=== PATIENT | female | born 1995 | race African-American/Black ===

== ENCOUNTER 2021-12-11 11:39 | Emergency (ER) | payer MEDICAID, SELFPAY ==
--- NOTE | ~2021-12-11 | US_ITS ---
EXAMINATION: US OBSTETRICAL ULTRASOUND CLINICAL INFORMATION: Rule out a catheter presence the. Left pelvic pain. Beta hCG 13,841 COMPARISON: None. LMP: October 30, 2021. Gestational age by maternal dates is 6 weeks 0 days. Estimated date of delivery by maternal dates is August 06, 2022. TECHNIQUE: Ultrasound of the maternal pelvis is performed using transabdominal and transvaginal transducers. Transvaginal imaging is performed due to inadequate visualization transabdominally. M-mode Doppler is also performed. FINDINGS: There is a single intrauterine gestational sac no yolk sac or pole was identified. There is no significant subchorionic hemorrhage or hematoma. The gestational sac measures 0.79 cm corresponding to a ultrasound gestational age of 5 weeks 3 days JAZMINE (estimated date of delivery): August 10, 2022 +/- 4 days. MATERNAL ADNEXA: The right maternal ovary measures 2.5 x 2.5 x 1.5 cm. No right adnexal mass or hypervascular ring of fire seen. The left maternal ovary measures 3.6 x 3.6 x 2.3 cm. No right adnexal mass or hypervascular ring of fire. There is a small amount of fluid within the cul-de-sac. US/US OB pelvic and transvaginal IMPRESSION: 1. Single intrauterine sac with ultrasound gestational age of 5 weeks 3 days +/- 4 days. 2. Estimated date of delivery is August 10, 2022 +/- 4 days. 3. No suspicious adnexal mass identified. Small amount of free fluid.
[2021-12-11 12:20] VITALS: BP 119/74; PULSE 76; RESP 16; TEMP 36.1; O2SAT 100; BMI 39.0
[2021-12-11 13:09] LABS: MANUAL DIFF FLAG NO
[2021-12-11 13:12] LABS: Basophils Percent Auto 0.2 % (0-2); Eosinophils Percent Auto 0.3 % (0-4); Hematocrit 37.2 % (37.0-47.0); Hemoglobin 11.7 g/dl (12.0-16.0); Imm Gran Abs Auto 0.01 X10*3/uL (0.00-0.03); Imm Gran Pct Auto 0.2 % (0.0-0.4); Lymphocytes Absolute Auto 1.9 X10*3/uL (1.2-4.9); Lymphocytes Percent Auto 33.6 % (20-40); Mean Corpuscular HGB Conc 31.5 g/dl (31.0-35.0); Mean Corpuscular Hemoglobin 23.4 pg (27.0-33.0); Mean Corpuscular Volume 74.4 fL (80.0-98.0); Mean Platelet Volume 9.8 fL (9.4-12.3); Monocytes Absolute Auto 0.3 X10*3/uL (0.1-1.2); Neutrophils Absolute Auto 3.5 x10*3/uL (2.0-8.3); Neutrophils Percent Auto 60.7 % (45-73); Platelet Count 346 X10*3/uL (160-400); Red Cell Distribution Width 14.1 % (11.0-16.0); White Blood Count 5.8 X10*3/uL (4.8-10.8)
[2021-12-11 13:30] LABS: Anion Gap 12 (12-20); Blood Urea Nitrogen 6 mg/dL (9-16); Calcium 9.6 mg/dL (8.4-10.2); Carbon Dioxide 24 mmol/L (22-29); Chloride 106 mmol/L (96-108); Creatinine Clr Calc Pharmacy 119.9; Estimated Glomerular Filt Rate > 60; Glucose Random 90 mg/dL (60-115); Potassium 4.3 mmol/L (3.3-5.1); Sodium 138 mmol/L (135-145)
[2021-12-11 13:37] LABS: HCG Quantitative 13841 mIU/mL
[2021-12-11 20:35] VITALS: BP 106/67; PULSE 72; RESP 18; TEMP 36.9; O2SAT 100
[2021-12-11 21:50] VITALS: BP 108/63; PULSE 74; RESP 18; O2SAT 100
[2021-12-11 22:02] LABS: Appearance Urine Cloudy; Color Urine Yellow; Glucose Urine UA Negative (Negative); Leukocyte Esterase Urine Negative (Negative); Nitrite Urine Negative (Negative); Urine Blood Negative (Negative); Urine Ketones Negative (Negative); Urine Protein Negative (Neg-Trace)
--- NOTE | 2021-12-11 22:02 | ED.FEMALEGU ---
HPI - Female Genitourinary General Chief complaint: Abdominal Pain Stated complaint: sent for HHC, ectopic ? Time Seen by Provider: 12/11/21 21:52 Source: patient Mode of arrival: ambulatory Limitations: no limitations History of Present Illness HPI Narrative: patient about 5 weeks complaining of lower abdominal pain was sent by OBG for US to rule out ectopic no vaginal bleeding no nausea no vomiting Related Data Allergies Allergy/AdvReac Type Severity Reaction Status Date / Time No Known Allergies Allergy Verified 12/11/21 12:24 Review of Systems Review of Systems: Yes all other systems are reviewed and are negative [facility], [facility] Social History Social History Advance Directives: No Advance Directives Information Provided: No Physical Exam Vital Signs: Vital Signs: Last Vital Signs Temp 98.4 F 12/11/21 20:35 Pulse 74 12/11/21 21:50 Resp 18 12/11/21 21:50 BP 108/63 12/11/21 21:50 Pulse Ox 100 12/11/21 21:50 O2 Del Method 12/11/21 21:50 BMI result Body Mass Index 39.0 Appearance: Alert. Oriented X3. No acute distress. ENT: Pharynx normal. Oral Mucosa moist Neck: Normal inspection. Neck supple. CVS: Normal heart rate and rhythm. Pulses normal. Respiratory: No respiratory distress. Equal air entry bilateral, Abdomen: Soft mild suprapubic discomfort, Bowel sounds are present, no mass palpable, no CVA tenderness Skin: Skin warm and dry. Normal skin color. Normal skin turgor. Extremities: No lower extremity edema. No calf tenderness Neuro: Oriented X 3. MDM - Female Genitourinary MDM Narrative Medical decision making narrative: patient have stable lab ultrasound showed IUP 5 weeks 3 days patient without any significant discomfort advised to follow up Ob Lab Data Attestation: I reviewed the patient's lab results. Result diagrams: 12/11/21 13:05 12/11/21 13:05 Labs: Lab Results 12/11/21 12/11/21 12/11/21 Range/Units 13:05 13:05 21:54 WBC 5.8 (4.8-10.8) X10*3/uL RBC 5.00 (4.20-5.50) X10*6/uL Hgb 11.7 L (12.0-16.0) g/dl Hct 37.2 (37.0-47.0) % MCV 74.4 L (80.0-98.0) fL MCH 23.4 L (27.0-33.0) pg MCHC 31.5 (31.0-35.0) g/dl RDW 14.1 (11.0-16.0) % Plt Count 346 (160-400) X10*3/uL MPV 9.8 (9.4-12.3) fL Immature Gran % (Auto) 0.2 (0.0-0.4) % Neut % (Auto) 60.7 (45-73) % Lymph % (Auto) 33.6 (20-40) % [place] % (Auto) 5.0 (2-11) % Eos % (Auto) 0.3 (0-4) % Baso % (Auto) 0.2 (0-2) % Lymph # (Auto) 1.9 (1.2-4.9) X10*3/uL [place] # (Auto) 0.3 (0.1-1.2) X10*3/uL Eos # (Auto) 0.0 (0.0-0.4) X10*3/uL Baso # (Auto) 0.0 (0.0-0.2) X10*3/uL Abs Immat Gran (auto) 0.01 (0.00-0.03) X10*3/uL Absolute Neuts (auto) 3.5 (2.0-8.3) x10*3/uL Absolute Nucleated RBC 0.000 (0.0-0.012) X10*3/uL Nucleated RBC % (auto) 0.0 (0.0-0.2) /100WBC Sodium 138 (135-145) mmol/L Potassium 4.3 (3.3-5.1) mmol/L Chloride 106 (96-108) mmol/L Carbon Dioxide 24 (22-29) mmol/L Anion Gap 12 (12-20) BUN 6 L (9-16) mg/dL Creatinine 0.72 (0.5-1.4) mg/dL Estim Creat Clear Calc 119.9 Estimated GFR > 60 Random Glucose 90 (60-115) mg/dL Calcium 9.6 (8.4-10.2) mg/dL Beta HCG, Quant 40865 mIU/mL Urine Color Yellow Urine Appearance Cloudy Urine pH 7.0 (5.0-9.0) Ur Specific [place] 1.010 (1.005-1.025) Urine Protein Negative (Neg-Trace) mg/dL Urine Glucose (UA) Negative (Negative) mg/dL Urine Ketones Negative (Negative) mg/dL Urine Blood Negative (Negative) Urine Nitrite Negative (Negative) Ur Leukocyte Esterase Negative (Negative) Discharge Plan Discharge Clinical Impression: at early stage Patient Disposition: Home, Self-Care Instructions: (ED) Additional Instructions: you have normal 5 weeks 3 days expected date of delivery is 08/10/2022 follow-up with your OB G if any concern report to ER if vaginal bleeding or increased abdominal pain watts g?t n?mal b?l? 5 wik 3 de di de we d?n olga se d?n go s?n am na 08/10/2022 f?l?p wit watts OB G if ?ni k?nsyus?n rip?t to ER if bl?d de k?m?t na di vagina ? di b?l? de pen b?ku Interventions: ED Discharge Assessment Last Done: 12/11/21 22:49 Discharge Date/Time: 12/11/21 22:50 Print Language: Divehi
== END 2021-12-11 22:50 | disposition home or self-care (01) ==
LOC: HO.ED 22:42
PROVIDERS: Emergency Provider Internal Medicine
DX: R10.30 Lower abdominal pain, unspecified (principal); R10.2 Pelvic and perineal pain; Z79.899 Other long term (current) drug therapy
CPT/HCPCS: 36415; 76801; 76817; 80048; 81003; 84702; 85025; 99283; 99284

== ENCOUNTER 2021-12-29 13:43 | Emergency (ER) | payer MEDICAID, SELFPAY ==
--- NOTE | ~2021-12-29 | US_ITS ---
EXAMINATION: US OBSTETRICAL ULTRASOUND US PELVIC OVARIAN DOPPLER CLINICAL INFORMATION: Left-sided flank and pelvic pain. Positive beta hCG. COMPARISON: Pelvic ultrasound dated 12/11/2021. LMP: Unknown. Gestational age by maternal dates is unknown. Estimated date of delivery by maternal dates is unknown. TECHNIQUE: Ultrasound images of the pelvis were obtained. FINDINGS: There is a single intrauterine gestational sac with visible yolk sac, embryo/fetus, and cardiac activity. There is no significant subchorionic hemorrhage or hematoma. HR: 146 beats per minute. CRL (crown rump length): 1.04 cm (7 weeks 1 day +/- 4 days). JAZMINE (estimated date of delivery): 08/16/2022 +/- 4 days. MATERNAL ADNEXA: The right maternal ovary measures 2.2 x 1.3 x 2.6 cm. No right ovarian lesion. Normal Doppler detectable vascular flow. The left maternal ovary measures 3.5 x 2.4 x 3.9 cm. No left ovarian lesion. Normal Doppler detectable vascular flow. There is no significant maternal adnexal mass. No maternal pelvic ascites. US/US pelvic ovarian doppler IMPRESSION: 1. Single intrauterine gestation with ultrasound gestational age of 7 weeks 1 day +/- 4 days. No subchorionic hemorrhage. 2. Estimated date of delivery is 08/16/2022 +/- 4 days. 3. No maternal adnexal mass or pelvic ascites.
--- NOTE | ~2021-12-29 | US_ITS ---
EXAMINATION: US OBSTETRICAL ULTRASOUND US PELVIC OVARIAN DOPPLER CLINICAL INFORMATION: Left-sided flank and pelvic pain. Positive beta hCG. COMPARISON: Pelvic ultrasound dated 12/11/2021. LMP: Unknown. Gestational age by maternal dates is unknown. Estimated date of delivery by maternal dates is unknown. TECHNIQUE: Ultrasound images of the pelvis were obtained. FINDINGS: There is a single intrauterine gestational sac with visible yolk sac, embryo/fetus, and cardiac activity. There is no significant subchorionic hemorrhage or hematoma. HR: 146 beats per minute. CRL (crown rump length): 1.04 cm (7 weeks 1 day +/- 4 days). JAZMINE (estimated date of delivery): 08/16/2022 +/- 4 days. MATERNAL ADNEXA: The right maternal ovary measures 2.2 x 1.3 x 2.6 cm. No right ovarian lesion. Normal Doppler detectable vascular flow. The left maternal ovary measures 3.5 x 2.4 x 3.9 cm. No left ovarian lesion. Normal Doppler detectable vascular flow. There is no significant maternal adnexal mass. No maternal pelvic ascites. US/US OB pelvic and transvaginal IMPRESSION: 1. Single intrauterine gestation with ultrasound gestational age of 7 weeks 1 day +/- 4 days. No subchorionic hemorrhage. 2. Estimated date of delivery is 08/16/2022 +/- 4 days. 3. No maternal adnexal mass or pelvic ascites.
[2021-12-29 14:13] VITALS: BP 108/64; PULSE 84; RESP 16; TEMP 36.2; O2SAT 100; BMI 27.4
--- NOTE | 2021-12-29 16:29 | ED.BACK ---
HPI - Back Pain/Injury General Chief Complaint: Back Pain/Injury Stated Complaint: Lower back pain Time Seen by Provider: 12/29/21 16:29 Source: patient Mode of arrival: ambulatory Limitations: no limitations History of Present Illness HPI Narrative: This is a 26-year-old female no significant medical history, currently around 6-7 weeks presenting to the emergency department complaints of severe left-sided flank pain with radiation to the front left abdomen, patient tells me this has been going on for few days progressively worsening. She was recently told she was . She tells me the pain is intermittent in nature, worse with movement better at rest. She reports that it goes mostly from her left flank into her left lower quadrant/ hip region. Patient reports she is very uncomfortable. Denies any injury or trauma. Denies nausea, vomiting, headache, vision changes, chest pain, shortness of breath, vaginal bleeding, vaginal discharge MD elicited complaint: other (Flank pain ) Related Data Previous Rx's Medication Instructions Recorded cephalexin 500 mg tablet 500 mg PO TID 14 days #42 tabs 12/29/21 prenat.vits,jaime,ypx-uhln-iaxcb 1 tab PO DAILY #30 tabs 12/29/21 Allergies Allergy/AdvReac Type Severity Reaction Status Date / Time No Known Allergies Allergy Verified 12/11/21 12:24 Review of Systems Review of Systems: Constitutional : No Weight loss, No Fever, No Chills, ENT/Mouth : No Hearing loss, No Ear Pain, No Nasal Congestion, No Sinus Pain, No Hoarseness, No sore throat, No Rhinorrhea, No Swallowing Difficulty Cardiovascular : No Chest Pain, No SOB Respiratory : No Cough, No Dyspnea Gastrointestinal : No Nausea, No Vomiting, No Diarrhea, No abdominal Pain, No Hematochezia, No Melena Genitourinary : No Dysuria, No Urinary Frequency, No Hematuria, No Urinary Incontinence, Musculoskeletal : positive back pain, positive flank pain Skin : No Skin Lesions, No rash Neuro : No Weakness, No Numbness, No Paresthesias, no loss of bowel or bladder incontinence, no saddle anesthesia Yes all other systems are reviewed and are negative [facility] Past Medical History Attestation statement: The following information was validated with the patient. Source: old records reviewed and nursing notes reviewed Social History Social History Advance Directives: No Advance Directives Information Provided: No Physical Exam Vital Signs: Vital Signs: Last Vital Signs Temp 97.2 F 12/29/21 14:13 Pulse 84 12/29/21 14:13 Resp 16 12/29/21 14:13 BP 108/64 12/29/21 14:13 Pulse Ox 100 12/29/21 14:13 O2 Del Method 12/29/21 14:13 BMI result Body Mass Index 27.4 vss Appearance: Alert.? Oriented X3.? No acute distress.? Head: Normocephalic, atraumatic, no step-offs or deformities Eyes: Pupils equal, round and reactive to light.? CVS: Normal heart rate and rhythm.? Pulses normal.? Respiratory: No respiratory distress.? Breath sounds normal.? Abdomen: Soft and nontender.? Skin: Skin warm and dry.? Normal skin color.? Normal skin turgor.? Extremities: No lower extremity edema.? No calf ttp. 5/5 strength to bilateral upper and lower extremities 2+ patellar reflexes equal bilateral Back: No midline tenderness, + left lumbar paraspinous tenderness, no C-spine tenderness, full range of motion, no CVA tenderness bilaterally Neuro: Oriented X 3.? No motor deficit.? No sensory deficit. CN 2-12 intact . Patient ambulating with steady gait with normal coordination. No saddle paresthesias. Course Reevaluation(s) Reevaluation #1: Patient's CBC with a slight microcytic anemia likely secondary to . Patient denies any vaginal bleeding or abdominal trauma. Chemistry with no acute findings requiring intervention. Patient's beta hCG 154,694. COVID negative. Ultrasound showing a single intrauterine gestation with ultrasound gestational age of 7 weeks 1 day +/-4 days, no subchorionic hemorrhage, estimated date of delivery 08/16/2022. No maternal adnexal mass or pelvic ascites. Urine pending. Upon re-evaluation no tenderness to palpation of abdomen, patient appears much more comfortable tells me she is feeling slightly better. Tolerating p.o.. Time: 19:38 Reevaluation #2: Patient's urine suspicious for infection there are white blood cells as well as 3+ bacteria will treat her with Keflex 500 mg p.o. t.i.d. times 14 days to cover for UTI and potential pyelonephritis. This time patient will be discharged home gave her follow-up with OBGYN will also send vitamins to the pharmacy. This time I feel comfortable discharge home with prompt PCP follow-up. Educated on worrisome signs and symptoms and when to return outlined on discharge. Comfortable discharge Time: 20:43 Medications Administered Discontinued Medications Generic Name Dose Route Start Last Admin Trade Name Dominique PRN Reason Stop Dose Admin Acetaminophen 975 mg 12/29/21 16:39 12/29/21 17:06 Acetaminophen 325 Mg Tablet PO 12/29/21 16:40 975 mg ONCE ONE Administration MDM - Back Pain/Injury MDM Narrative Medical decision making narrative: 1630 26-year-old female presenting with left-sided back pain/ flank pain radiating to left lower abdomen/ hip. No injury. No history of IV drug abuse, cancer, fevers, chills. Currently around 6-7 weeks is not followed by OBGYN. Denies trauma, vaginal bleeding, fevers, chills Upon chart review it is noted that patient was seen here on December 11 where she presented with similar complaints lower abdominal pain, she was sent in by her OBGYN to obtain an ultrasound to rule out ectopic at that time she denied vaginal bleeding nausea and vomiting. Patient was noted to have a intrauterine at 5 weeks 3 days without significant discomfort. Physical examination with pain with palpation to left paraspinous muscles, no midline tenderness. Neuro nonfocal. Cerebellar intact. Non tender abdomen. Ambulating with steady gait normal coordination. No saddle paresthesias. Normal reflexes. Likely lumbar strain. Unlikely cauda equina, epidural abscess, torsion, cord injury, appendicits, diverticulitis, kidney stones. No signs of peritonitis or acute abdomen. Will rule complications w/ . Medical Records Attestation: I reviewed the patient's medical records. Lab Data Attestation: I reviewed the patient's lab results. Result diagrams: 12/29/21 17:11 12/29/21 17:11 Labs: Lab Results 12/29/21 12/29/21 12/29/21 Range/Units 17:09 17:11 17:11 WBC 6.5 (4.8-10.8) X10*3/uL RBC 4.55 (4.20-5.50) X10*6/uL Hgb 11.0 L (12.0-16.0) g/dl Hct 33.5 L (37.0-47.0) % MCV 73.6 L (80.0-98.0) fL MCH 24.2 L (27.0-33.0) pg MCHC 32.8 (31.0-35.0) g/dl RDW 13.6 (11.0-16.0) % Plt Count 263 (160-400) X10*3/uL MPV 10.0 (9.4-12.3) fL Immature Gran % (Auto) 0.2 (0.0-0.4) % Neut % (Auto) 56.7 (45-73) % Lymph % (Auto) 35.9 (20-40) % [place] % (Auto) 6.4 (2-11) % Eos % (Auto) 0.6 (0-4) % Baso % (Auto) 0.2 (0-2) % Lymph # (Auto) 2.4 (1.2-4.9) X10*3/uL [place] # (Auto) 0.4 (0.1-1.2) X10*3/uL Eos # (Auto) 0.0 (0.0-0.4) X10*3/uL Baso # (Auto) 0.0 (0.0-0.2) X10*3/uL Abs Immat Gran (auto) 0.01 (0.00-0.03) X10*3/uL Absolute Neuts (auto) 3.7 (2.0-8.3) x10*3/uL Absolute Nucleated RBC 0.000 (0.0-0.012) X10*3/uL Nucleated RBC % (auto) 0.0 (0.0-0.2) /100WBC Sodium 135 (135-145) mmol/L Potassium 4.1 (3.3-5.1) mmol/L Chloride 105 (96-108) mmol/L Carbon Dioxide 20 L (22-29) mmol/L Anion Gap 14 (12-20) BUN 9 (9-16) mg/dL Creatinine 0.70 (0.5-1.4) mg/dL Estim Creat Clear Calc 124.4 Estimated GFR > 60 Random Glucose 85 (60-115) mg/dL Calcium 9.4 (8.4-10.2) mg/dL Magnesium 1.8 (1.6-2.6) mg/dL Total Bilirubin 0.3 (0.0-1.0) mg/dL AST 19 (5-31) U/L ALT 13 (0-31) U/L Alkaline Phosphatase 38 L (39-117) U/L Total Protein 7.0 (6.5-8.0) g/dL Albumin 4.2 (3.5-5.0) g/dL Lipase 68 (8-78) U/L Beta HCG, Quant 857077 mIU/mL Urine Color Urine Appearance Urine pH (5.0-9.0) Ur Specific [place] (1.005-1.025) Urine Protein (Neg-Trace) mg/dL Urine Glucose (UA) (Negative) mg/dL Urine Ketones (Negative) mg/dL Urine Blood (Negative) Urine Nitrite (Negative) Ur Leukocyte Esterase (Negative) Urine RBC (0-2) /HPF Urine WBC (0-5) /HPF Ur Squamous Epith Cells (0-2) /HPF Urine Bacteria (None Seen) Hyaline Casts (0-2) /LPF COVID-19 ([facility]) Negative (Negative) COVID-19 Clin Com See Note 12/29/21 Range/Units 20:04 WBC (4.8-10.8) X10*3/uL RBC (4.20-5.50) X10*6/uL Hgb (12.0-16.0) g/dl Hct (37.0-47.0) % MCV (80.0-98.0) fL MCH (27.0-33.0) pg MCHC (31.0-35.0) g/dl RDW (11.0-16.0) % Plt Count (160-400) X10*3/uL MPV (9.4-12.3) fL Immature Gran % (Auto) (0.0-0.4) % Neut % (Auto) (45-73) % Lymph % (Auto) (20-40) % [place] % (Auto) (2-11) % Eos % (Auto) (0-4) % Baso % (Auto) (0-2) % Lymph # (Auto) (1.2-4.9) X10*3/uL [place] # (Auto) (0.1-1.2) X10*3/uL Eos # (Auto) (0.0-0.4) X10*3/uL Baso # (Auto) (0.0-0.2) X10*3/uL Abs Immat Gran (auto) (0.00-0.03) X10*3/uL Absolute Neuts (auto) (2.0-8.3) x10*3/uL Absolute Nucleated RBC (0.0-0.012) X10*3/uL Nucleated RBC % (auto) (0.0-0.2) /100WBC Sodium (135-145) mmol/L Potassium (3.3-5.1) mmol/L Chloride (96-108) mmol/L Carbon Dioxide (22-29) mmol/L Anion Gap (12-20) BUN (9-16) mg/dL Creatinine (0.5-1.4) mg/dL Estim Creat Clear Calc Estimated GFR Random Glucose (60-115) mg/dL Calcium (8.4-10.2) mg/dL Magnesium (1.6-2.6) mg/dL Total Bilirubin (0.0-1.0) mg/dL AST (5-31) U/L ALT (0-31) U/L Alkaline Phosphatase (39-117) U/L Total Protein (6.5-8.0) g/dL Albumin (3.5-5.0) g/dL Lipase (8-78) U/L Beta HCG, Quant mIU/mL Urine Color Yellow Urine Appearance Clear Urine pH 6.0 (5.0-9.0) Ur Specific [place] 1.020 (1.005-1.025) Urine Protein Negative (Neg-Trace) mg/dL Urine Glucose (UA) Negative (Negative) mg/dL Urine Ketones 80 (Negative) mg/dL Urine Blood Trace H (Negative) Urine Nitrite Negative (Negative) Ur Leukocyte Esterase Trace H (Negative) Urine RBC 0-2 (0-2) /HPF Urine WBC 6-10 H (0-5) /HPF Ur Squamous Epith Cells 6-10 (0-2) /HPF Urine Bacteria 3+ (None Seen) Hyaline Casts 0-2 (0-2) /LPF COVID-19 ([facility]) (Negative) COVID-19 Clin Com Critical Care Time Critical Care Time Critical Care Time: No Discharge Plan Discharge Clinical Impression: Lumbar radiculopathy, , UTI (urinary tract infection) Patient Disposition: Home, Self-Care Instructions: Acute Low Back Pain (ED), Lumbar Radiculopathy (ED), Back Pain (ED), Urinary Tract Infection in (ED), at 7 to 10 Weeks (ED) Additional Instructions: Take your medications as prescribed. If you were prescribed antibiotics today, it is important that you take your medication to their entirety, do not skip any doses, do not finish them early. Follow-up with your primary care provider this week. Please follow-up with your OBGYN provider this week. Return with new or worsening symptoms. Return to the emergency department with new or worsening symptoms. Such as fevers, chills, chest pain, shortness of breath, nausea, vomiting, dizziness, headache, vision changes, lethargy In case of emergency call 911 [place] mayco medicamentos seg?n lo prescrito. Si le recetaron antibi?ticos mica, es importante que tome sexton medicamento en sexton totalidad, no se salte ninguna dosis, no los termine antes de tiempo. Seguimiento con sexton proveedor de atenci?n primaria esta semana. [place] un seguimiento con sexton proveedor de obstetricia y ginecolog?a esta semana. Regresa con s?ntomas nuevos o que empeoran. Regrese al departamento de emergencias con s?ntomas nuevos o que empeoran. [place] fiebre, escalofr?os, dolor de pecho, dificultad para respirar, n?useas, v?mitos, mareos, dolor de honey, cambios en la visi?n, letargo En arcelia de emergencia llama al 911 US/US pelvic ovarian doppler IMPRESSION: 1. Single intrauterine gestation with ultrasound gestational age of? 7 weeks 1 day +/- 4 days. No subchorionic hemorrhage. ? 2. Estimated date of delivery is 08/16/2022 +/- 4 days. ? 3. No maternal adnexal mass or pelvic ascites. Prescriptions: New cephalexin 500 mg tablet 500 mg PO TID 14 Days Qty: 42 0RF prenat.vits,jaime,oua-agjj-nrxtg Tablet 1 tab PO DAILY Qty: 30 2RF Referrals: Pratik Jacobson MD [Emergency Provider] - 2 days [facility] [Primary Care Provider] - Hilario Garcia MD [Physician] - 2 days Stand Alone Forms: Work/School Release
[2021-12-29] MEDS: Acetaminophen 325 MG TABLET 975 MG PO (17:06)
[2021-12-29 17:17] LABS: MANUAL DIFF FLAG NO
[2021-12-29 17:19] LABS: Basophils Percent Auto 0.2 % (0-2); Eosinophils Percent Auto 0.6 % (0-4); Hematocrit 33.5 % (37.0-47.0); Imm Gran Abs Auto 0.01 X10*3/uL (0.00-0.03); Imm Gran Pct Auto 0.2 % (0.0-0.4); Lymphocytes Absolute Auto 2.4 X10*3/uL (1.2-4.9); Lymphocytes Percent Auto 35.9 % (20-40); Mean Corpuscular HGB Conc 32.8 g/dl (31.0-35.0); Mean Corpuscular Hemoglobin 24.2 pg (27.0-33.0); Mean Corpuscular Volume 73.6 fL (80.0-98.0); Monocytes Absolute Auto 0.4 X10*3/uL (0.1-1.2); Monocytes Percent Auto 6.4 % (2-11); Neutrophils Absolute Auto 3.7 x10*3/uL (2.0-8.3); Neutrophils Percent Auto 56.7 % (45-73); Platelet Count 263 X10*3/uL (160-400); Red Blood Count 4.55 X10*6/uL (4.20-5.50); Red Cell Distribution Width 13.6 % (11.0-16.0); White Blood Count 6.5 X10*3/uL (4.8-10.8)
[2021-12-29 17:33] LABS: COVID-19 Test Negative (Negative); IDNOW Serial# 16C4AD1C
[2021-12-29 17:37] LABS: Alanine Aminotransferase 13 U/L (0-31); Albumin Level 4.2 g/dL (3.5-5.0); Alkaline Phosphatase 38 U/L (39-117); Anion Gap 14 (12-20); Aspartate Amino Transferase 19 U/L (5-31); Bilirubin Total 0.3 mg/dL (0.0-1.0); Blood Urea Nitrogen 9 mg/dL (9-16); Calcium 9.4 mg/dL (8.4-10.2); Carbon Dioxide 20 mmol/L (22-29); Chloride 105 mmol/L (96-108); Creatinine Clr Calc Pharmacy 124.4; Estimated Glomerular Filt Rate > 60; Glucose Random 85 mg/dL (60-115); Lipase 68 U/L (8-78); Magnesium 1.8 mg/dL (1.6-2.6); Potassium 4.1 mmol/L (3.3-5.1); Sodium 135 mmol/L (135-145)
[2021-12-29 20:34] LABS: Appearance Urine Clear; Color Urine Yellow; Glucose Urine UA Negative (Negative); Leukocyte Esterase Urine Trace (Negative); Nitrite Urine Negative (Negative); UMIC TRIGGER UACC YES; Urine Blood Trace (Negative); Urine Ketones 80 mg/dL (Negative); Urine Protein Negative (Neg-Trace)
[2021-12-29 20:39] LABS: Bacteria Urine 3+ (None Seen); Hyaline Casts Urine 0-2 /LPF (0-2); RBC Urine 0-2 /HPF (0-2); UACC Culture Trigger YES
== END 2021-12-29 22:00 | disposition home or self-care (01) ==
PROVIDERS: Physician Assistant; Emergency Provider Emergency Medicine
DX: O23.41 Unspecified infection of urinary tract in pregnancy, first trimester (principal); N39.0 Urinary tract infection, site not specified; M54.50 Low back pain, unspecified; Z3A.01 Less than 8 weeks gestation of pregnancy; Z20.822 Contact with and (suspected) exposure to COVID-19; Z79.899 Other long term (current) drug therapy
CPT/HCPCS: 76801; 76817; 80053; 81001; 83690; 83735; 84702; 85025; 87086; 87635; 93975; 99283

== ENCOUNTER 2022-01-04 11:21 | Emergency (ER) | payer MEDICAID, SELFPAY ==
--- NOTE | ~2022-01-04 | US_ITS ---
EXAMINATION: US OBSTETRICAL ULTRASOUND CLINICAL INFORMATION: Vaginal bleeding. COMPARISON: Pelvic ultrasound studies dated 12/11/2021 and 12/29/2021. TECHNIQUE: Multiple 2-D grayscale transabdominal and transvaginal ultrasound images of the pelvis were obtained. FINDINGS: There is a single intrauterine gestational sac with visible yolk sac, embryo/fetus, and cardiac activity. Subchorionic hemorrhage represents interval increase measuring approximately 3.4 x 1.3 x 2.1 cm towards the fundus. A smaller collection appears noncontiguous with the first measures 1.7 x 1.1 x 0.8 cm. The cervix is closed. Trace free fluid in the cul-de-sac. HR: 156 beats per minute. CRL (crown rump length): 1.65 cm (8 weeks, 0 days +/- 4 days). JAZMINE (estimated date of delivery): 08/16/2022 +/- 4 days. MATERNAL ADNEXA: The right maternal ovary measures 2.6 x 1.3 x 2.5 cm. The left maternal ovary measures 4.4 x 2.6 x 3.9 cm. There is no significant maternal adnexal mass. No maternal pelvic ascites. US/US OB pelvic and transvaginal IMPRESSION: 1. Single intrauterine gestation with ultrasound gestational age of 8 weeks, 0 days +/- 4 days. 2. Estimated date of delivery is 08/16/2022 +/- 4 days. 3. 2 foci of subchorionic hemorrhage as detailed above. Short-term ultrasound follow-up is recommended as clinically indicated.
[2022-01-04 11:24] VITALS: BP 114/63; PULSE 84; RESP 18; TEMP 36.6; O2SAT 100; BMI 33.3
--- NOTE | 2022-01-04 11:24 | ED_ITS ---
HPI - General Chief complaint: Vaginal Bleeding Stated complaint: , bleeding Time Seen by Provider: 01/04/22 12:48 Related Data Previous Rx's Medication Instructions Recorded cephalexin 500 mg tablet 500 mg PO TID 14 days #42 tabs 12/29/21 prenat.vits,jaime,dma-palc-mtkyz 1 tab PO DAILY #30 tabs 12/29/21 Allergies Allergy/AdvReac Type Severity Reaction Status Date / Time No Known Allergies Allergy Verified 12/11/21 12:24 [facility] Social History Social History Advance Directives: No Patient : Yes Physical Exam Vital Signs: Vital Signs: Last Vital Signs Temp 98.3 F 01/04/22 14:20 Pulse 77 01/04/22 14:20 Resp 16 01/04/22 14:20 BP 113/77 01/04/22 14:20 Pulse Ox 99 01/04/22 14:20 O2 Del Method 01/04/22 14:20 BMI result Body Mass Index 33.3 Course Course Course Narrative: RME-- 26yo F at 2 mos gestation (Creol spaking) c/o vaginal bleeding x2 days w/ assoc headache. Denies abd pain, clots VSS, abd soft nontender Labs, UA, Rh factor, Ob ultrasound ordered in triage MDM - OB/Uterine Contractions Lab Data Result diagrams: 01/04/22 11:40 01/04/22 11:40 Labs: Lab Results 01/04/22 01/04/22 01/04/22 Range/Units 11:40 11:40 11:42 WBC 6.0 (4.8-10.8) X10*3/uL RBC 4.60 (4.20-5.50) X10*6/uL Hgb 10.9 L (12.0-16.0) g/dl Hct 34.1 L (37.0-47.0) % MCV 74.1 L (80.0-98.0) fL MCH 23.7 L (27.0-33.0) pg MCHC 32.0 (31.0-35.0) g/dl RDW 13.6 (11.0-16.0) % Plt Count 290 (160-400) X10*3/uL MPV 10.1 (9.4-12.3) fL Immature Gran % (Auto) 0.2 (0.0-0.4) % Neut % (Auto) 64.5 (45-73) % Lymph % (Auto) 29.0 (20-40) % [place] % (Auto) 5.6 (2-11) % Eos % (Auto) 0.5 (0-4) % Baso % (Auto) 0.2 (0-2) % Lymph # (Auto) 1.8 (1.2-4.9) X10*3/uL [place] # (Auto) 0.3 (0.1-1.2) X10*3/uL Eos # (Auto) 0.0 (0.0-0.4) X10*3/uL Baso # (Auto) 0.0 (0.0-0.2) X10*3/uL Abs Immat Gran (auto) 0.01 (0.00-0.03) X10*3/uL Absolute Neuts (auto) 3.9 (2.0-8.3) x10*3/uL Absolute Nucleated RBC 0.000 (0.0-0.012) X10*3/uL Nucleated RBC % (auto) 0.0 (0.0-0.2) /100WBC Sodium 136 (135-145) mmol/L Potassium 4.2 (3.3-5.1) mmol/L Chloride 107 (96-108) mmol/L Carbon Dioxide 23 (22-29) mmol/L Anion Gap 10 L (12-20) BUN 8 L (9-16) mg/dL Creatinine 0.77 (0.5-1.4) mg/dL Estim Creat Clear Calc 124.3 Estimated GFR > 60 Random Glucose 91 (60-115) mg/dL Calcium 9.6 (8.4-10.2) mg/dL Total Bilirubin 0.3 (0.0-1.0) mg/dL Direct Bilirubin < 0.2 (0.0-0.5) mg/dL AST 20 (5-31) U/L ALT 14 (0-31) U/L Alkaline Phosphatase 39 (39-117) U/L Total Protein 6.7 (6.5-8.0) g/dL Albumin 4.0 (3.5-5.0) g/dL Lipase 37 (8-78) U/L Beta HCG, Quant 793357 mIU/mL Urine Color Dark Yellow Urine Appearance Clear Urine pH 7.5 (5.0-9.0) Ur Specific [place] >= 1.030 H (1.005-1.025) Urine Protein Trace (Neg-Trace) mg/dL Urine Glucose (UA) Negative (Negative) mg/dL Urine Ketones Trace (Negative) mg/dL Urine Blood Trace H (Negative) Urine Nitrite Negative (Negative) Ur Leukocyte Esterase Negative (Negative) Urine RBC 0-2 (0-2) /HPF Urine WBC 0-5 (0-5) /HPF Ur Squamous Epith Cells 6-10 (0-2) /HPF Urine Bacteria Trace (None Seen) Hyaline Casts 0-2 (0-2) /LPF Blood Type 01/04/22 Range/Units 11:58 WBC (4.8-10.8) X10*3/uL RBC (4.20-5.50) X10*6/uL Hgb (12.0-16.0) g/dl Hct (37.0-47.0) % MCV (80.0-98.0) fL MCH (27.0-33.0) pg MCHC (31.0-35.0) g/dl RDW (11.0-16.0) % Plt Count (160-400) X10*3/uL MPV (9.4-12.3) fL Immature Gran % (Auto) (0.0-0.4) % Neut % (Auto) (45-73) % Lymph % (Auto) (20-40) % Riley % (Auto) (2-11) % Eos % (Auto) (0-4) % Baso % (Auto) (0-2) % Lymph # (Auto) (1.2-4.9) X10*3/uL Riley # (Auto) (0.1-1.2) X10*3/uL Eos # (Auto) (0.0-0.4) X10*3/uL Baso # (Auto) (0.0-0.2) X10*3/uL Abs Immat Gran (auto) (0.00-0.03) X10*3/uL Absolute Neuts (auto) (2.0-8.3) x10*3/uL Absolute Nucleated RBC (0.0-0.012) X10*3/uL Nucleated RBC % (auto) (0.0-0.2) /100WBC Sodium (135-145) mmol/L Potassium (3.3-5.1) mmol/L Chloride (96-108) mmol/L Carbon Dioxide (22-29) mmol/L Anion Gap (12-20) BUN (9-16) mg/dL Creatinine (0.5-1.4) mg/dL Estim Creat Clear Calc Estimated GFR Random Glucose (60-115) mg/dL Calcium (8.4-10.2) mg/dL Total Bilirubin (0.0-1.0) mg/dL Direct Bilirubin (0.0-0.5) mg/dL AST (5-31) U/L ALT (0-31) U/L Alkaline Phosphatase (39-117) U/L Total Protein (6.5-8.0) g/dL Albumin (3.5-5.0) g/dL Lipase (8-78) U/L Beta HCG, Quant mIU/mL Urine Color Urine Appearance Urine pH (5.0-9.0) Ur Specific [place] (1.005-1.025) Urine Protein (Neg-Trace) mg/dL Urine Glucose (UA) (Negative) mg/dL Urine Ketones (Negative) mg/dL Urine Blood (Negative) Urine Nitrite (Negative) Ur Leukocyte Esterase (Negative) Urine RBC (0-2) /HPF Urine WBC (0-5) /HPF Ur Squamous Epith Cells (0-2) /HPF Urine Bacteria (None Seen) Hyaline Casts (0-2) /LPF Blood Type O Positive Discharge Plan Discharge Clinical Impression: Vaginal bleeding, Threatened , Intrauterine Patient Disposition: Home, Self-Care Instructions: Threatened Miscarriage (ED) Additional Instructions: Your red blood cell counts are unchanged from 6 days prior which is reassuring. Your urine revealed no evidence of an infection. Your quantitative beta HCG on 12/29/2021 was 154,694 and today it went up to 176,810, this is reassuring Sometimes bleeding in early can be normal however sometimes a can be caused by a miscarriage. At this time I do not think that your miscarriage in however you should rest, avoid having sex, and drink plenty of fluids. Call our buggy runner, Dr. Garcia on Thursday to try to make a follow-up with the next available provider in the office. You need a repeat quantitative beta-hCG in 4-7 days. Please return to the emergency department if your symptoms get worse or if you develop any symptoms that are concerning to you. Prescriptions: No Action cephalexin 500 mg tablet 500 mg PO TID 14 Days Qty: 42 0RF prenat.vits,jaime,gsc-zvzt-[id number] Tablet 1 tab PO DAILY Qty: 30 2RF Referrals: Hilario Garcia MD [Physician] - 1 week Interventions: ED Discharge Assessment Last Done: 01/04/22 14:34 Discharge Date/Time: 01/04/22 14:36
[2022-01-04 11:46] LABS: MANUAL DIFF FLAG NO
[2022-01-04 11:47] LABS: Basophils Percent Auto 0.2 % (0-2); Eosinophils Percent Auto 0.5 % (0-4); Hematocrit 34.1 % (37.0-47.0); Hemoglobin 10.9 g/dl (12.0-16.0); Imm Gran Abs Auto 0.01 X10*3/uL (0.00-0.03); Imm Gran Pct Auto 0.2 % (0.0-0.4); Lymphocytes Absolute Auto 1.8 X10*3/uL (1.2-4.9); Mean Corpuscular Hemoglobin 23.7 pg (27.0-33.0); Mean Corpuscular Volume 74.1 fL (80.0-98.0); Mean Platelet Volume 10.1 fL (9.4-12.3); Monocytes Absolute Auto 0.3 X10*3/uL (0.1-1.2); Monocytes Percent Auto 5.6 % (2-11); Neutrophils Absolute Auto 3.9 x10*3/uL (2.0-8.3); Neutrophils Percent Auto 64.5 % (45-73); Platelet Count 290 X10*3/uL (160-400); Red Cell Distribution Width 13.6 % (11.0-16.0)
[2022-01-04 11:49] LABS: Appearance Urine Clear; Color Urine Dark Yellow; Glucose Urine UA Negative (Negative); Leukocyte Esterase Urine Negative (Negative); Nitrite Urine Negative (Negative); PH 7.5 (5.0-9.0); Specific Gravity - Urine >= 1.030 (1.005-1.025); UMIC TRIGGER UACC YES; Urine Blood Trace (Negative); Urine Ketones Trace mg/dL (Negative); Urine Protein Trace mg/dL (Neg-Trace)
[2022-01-04 11:51] LABS: Bacteria Urine Trace (None Seen); Hyaline Casts Urine 0-2 /LPF (0-2); RBC Urine 0-2 /HPF (0-2); WBC Urine 0-5 /HPF (0-5)
[2022-01-04 12:06] VITALS: BP 102/67; PULSE 74; RESP 16; TEMP 36.7; O2SAT 100
[2022-01-04 12:19] LABS: Alanine Aminotransferase 14 U/L (0-31); Alkaline Phosphatase 39 U/L (39-117); Anion Gap 10 (12-20); Aspartate Amino Transferase 20 U/L (5-31); Bilirubin Direct < 0.2 mg/dL (0.0-0.5); Bilirubin Total 0.3 mg/dL (0.0-1.0); Blood Urea Nitrogen 8 mg/dL (9-16); Calcium 9.6 mg/dL (8.4-10.2); Carbon Dioxide 23 mmol/L (22-29); Chloride 107 mmol/L (96-108); Creatinine Clr Calc Pharmacy 124.3; Estimated Glomerular Filt Rate > 60; Glucose Random 91 mg/dL (60-115); Lipase 37 U/L (8-78); Potassium 4.2 mmol/L (3.3-5.1); Sodium 136 mmol/L (135-145); Total Protein 6.7 g/dL (6.5-8.0)
[2022-01-04 14:20] VITALS: BP 113/77; PULSE 77; RESP 16; TEMP 36.8; O2SAT 99
--- NOTE | 2022-01-04 14:20 | ED.FEMALEGU ---
HPI - Female Genitourinary General Chief complaint: Vaginal Bleeding Stated complaint: , bleeding Time Seen by Provider: 01/04/22 12:48 Source: patient and family () Mode of arrival: ambulatory Limitations: language barrier (Patient and speak Swedish Creole) History of Present Illness HPI Narrative: 26-year-old female EDC 08/16/2022 (determined by ultrasound on 12/19/2021) who presents emergency department for evaluation of vaginal bleeding. The patient states that this morning when she woke up she was feeling well. She then urinated and noticed a small amount of blood in the urine and when she wiped herself. She describes this blood is black in color. She denied any other symptoms. She denied abdominal pain, nausea or vomiting. She denied frequency urgency or dysuria. Patient was seen in the emergency department on 12/29/2021 for left-sided flank pain the pain radiated to her abdomen. At that time she knew that she was approximately 6-7 weeks . Her quantitative beta-hCG at that time was 154,694. Patient had a pelvic ultrasound which revealed a single intrauterine with measured age of 7 weeks and 1 day with an EDC of 08/16/2022. Related Data Previous Rx's Medication Instructions Recorded cephalexin 500 mg tablet 500 mg PO TID 14 days #42 tabs 12/29/21 prenat.vits,jaime,czt-gzil-cqdkz 1 tab PO DAILY #30 tabs 12/29/21 Allergies Allergy/AdvReac Type Severity Reaction Status Date / Time No Known Allergies Allergy Verified 12/11/21 12:24 Review of Systems Review of Systems: Yes all other systems are reviewed and are negative [facility] Past Medical History [facility] Narrative: Past medical history: None. Past surgical history: None. Social history: The patient is and is here with her . She speaks [place] Creole. She denies tobacco, alcohol and drug use. Social History Social History Advance Directives: No Patient : Yes Physical Exam Vital Signs: Vital Signs: Last Vital Signs Temp 98.1 F 01/04/22 12:06 Pulse 74 01/04/22 12:06 Resp 16 01/04/22 12:06 BP 102/67 01/04/22 12:06 Pulse Ox 100 01/04/22 12:06 O2 Del Method 01/04/22 12:06 BMI result Body Mass Index 33.3 Const: General: cooperative and no acute distress Orientation/consciousness: oriented to person and oriented to place Limitations: no limitations HEENT: Head: Yes normal to inspection, Yes normocephalic and Yes atraumatic Ears: external ears normal General nose exam: Normal external nose present Face and sinus: Yes normal facial exam Mouth: Normal oral and palatal mucosa present Throat: Yes posterior oropharynx normal Eyes: General: appearance normal, both eyes and all related structures Pupils: Equal, round and reactive pupils present Neck: Neck: Yes normal visual inspection, Yes no lymphadenopathy, Yes trachea midline and Yes supple Chest: Chest palpation & inspection: normal inspection of the chest and normal palpation of entire chest wall Resp: Effort & Inspection: normal respiratory effort and able to speak in complete sentences Auscultation: clear to auscultation bilaterally Cardio: Rate: regular rate Rhythm: regular rhythm Heart sounds: S1 normal heart sound present, S2 normal heart sound present and no murmurs GI: Inspection: Yes normal to inspection Palpation (GI): Soft to palpation, nontender and no guarding Auscultation: normal bowel sounds : General: Yes no CVA tenderness Back/Spine/Pelvis: Back: no CVA tenderness Skin: General skin exam: no rashes or lesions noted Neuro: General: oriented to person and oriented to place Cranial nerves: Yes CN's II-XII intact bilaterally and Yes Equal, round and reactive pupils present Cognition (Neuro): normal cognition Motor exam (neuro): 5/5 motor strength present throughout Extrem: General: Yes normal to inspection Psych: Appearance: grossly normal Speech and movement: Normal speech and movement present Affect: normal affect Course Course Course Narrative: 26-year-old female , 8 weeks with EDC 08/16/2022 determined by ultrasound presents emergency department for evaluation of vaginal bleeding. The patient noted a small amount of dark blood this morning when she urinated and when she wiped herself. She had no abdominal pain or other concerning symptoms. Patient's vital signs were normal. Patient's laboratory evaluation revealed microcytic anemia with an H&H of 10.9 and 34.1 this is compared to an H&H of 11 and 33.5 on 12/29/2021. Comprehensive metabolic panel was normal. Quantitative beta HCG G today was 176,810 which is reassuring since it has gone up. I did discuss bleeding in and the possibility of a miscarriage with the patient and the patient's . The patient has not established OBGYN care yet. The patient was advised to contact our gynecology group for follow-up within 1 week and return if her symptoms get worse. MDM - Female Genitourinary Lab Data Result diagrams: 01/04/22 11:40 01/04/22 11:40 Labs: Lab Results 01/04/22 01/04/22 01/04/22 Range/Units 11:40 11:40 11:42 WBC 6.0 (4.8-10.8) X10*3/uL RBC 4.60 (4.20-5.50) X10*6/uL Hgb 10.9 L (12.0-16.0) g/dl Hct 34.1 L (37.0-47.0) % MCV 74.1 L (80.0-98.0) fL MCH 23.7 L (27.0-33.0) pg MCHC 32.0 (31.0-35.0) g/dl RDW 13.6 (11.0-16.0) % Plt Count 290 (160-400) X10*3/uL MPV 10.1 (9.4-12.3) fL Immature Gran % (Auto) 0.2 (0.0-0.4) % Neut % (Auto) 64.5 (45-73) % Lymph % (Auto) 29.0 (20-40) % [place] % (Auto) 5.6 (2-11) % Eos % (Auto) 0.5 (0-4) % Baso % (Auto) 0.2 (0-2) % Lymph # (Auto) 1.8 (1.2-4.9) X10*3/uL [place] # (Auto) 0.3 (0.1-1.2) X10*3/uL Eos # (Auto) 0.0 (0.0-0.4) X10*3/uL Baso # (Auto) 0.0 (0.0-0.2) X10*3/uL Abs Immat Gran (auto) 0.01 (0.00-0.03) X10*3/uL Absolute Neuts (auto) 3.9 (2.0-8.3) x10*3/uL Absolute Nucleated RBC 0.000 (0.0-0.012) X10*3/uL Nucleated RBC % (auto) 0.0 (0.0-0.2) /100WBC Sodium 136 (135-145) mmol/L Potassium 4.2 (3.3-5.1) mmol/L Chloride 107 (96-108) mmol/L Carbon Dioxide 23 (22-29) mmol/L Anion Gap 10 L (12-20) BUN 8 L (9-16) mg/dL Creatinine 0.77 (0.5-1.4) mg/dL Estim Creat Clear Calc 124.3 Estimated GFR > 60 Random Glucose 91 (60-115) mg/dL Calcium 9.6 (8.4-10.2) mg/dL Total Bilirubin 0.3 (0.0-1.0) mg/dL Direct Bilirubin < 0.2 (0.0-0.5) mg/dL AST 20 (5-31) U/L ALT 14 (0-31) U/L Alkaline Phosphatase 39 (39-117) U/L Total Protein 6.7 (6.5-8.0) g/dL Albumin 4.0 (3.5-5.0) g/dL Lipase 37 (8-78) U/L Beta HCG, Quant 708497 mIU/mL Urine Color Dark Yellow Urine Appearance Clear Urine pH 7.5 (5.0-9.0) Ur Specific [place] >= 1.030 H (1.005-1.025) Urine Protein Trace (Neg-Trace) mg/dL Urine Glucose (UA) Negative (Negative) mg/dL Urine Ketones Trace (Negative) mg/dL Urine Blood Trace H (Negative) Urine Nitrite Negative (Negative) Ur Leukocyte Esterase Negative (Negative) Urine RBC 0-2 (0-2) /HPF Urine WBC 0-5 (0-5) /HPF Ur Squamous Epith Cells 6-10 (0-2) /HPF Urine Bacteria Trace (None Seen) Hyaline Casts 0-2 (0-2) /LPF Blood Type 01/04/22 Range/Units 11:58 WBC (4.8-10.8) X10*3/uL RBC (4.20-5.50) X10*6/uL Hgb (12.0-16.0) g/dl Hct (37.0-47.0) % MCV (80.0-98.0) fL MCH (27.0-33.0) pg MCHC (31.0-35.0) g/dl RDW (11.0-16.0) % Plt Count (160-400) X10*3/uL MPV (9.4-12.3) fL Immature Gran % (Auto) (0.0-0.4) % Neut % (Auto) (45-73) % Lymph % (Auto) (20-40) % [place] % (Auto) (2-11) % Eos % (Auto) (0-4) % Baso % (Auto) (0-2) % Lymph # (Auto) (1.2-4.9) X10*3/uL [place] # (Auto) (0.1-1.2) X10*3/uL Eos # (Auto) (0.0-0.4) X10*3/uL Baso # (Auto) (0.0-0.2) X10*3/uL Abs Immat Gran (auto) (0.00-0.03) X10*3/uL Absolute Neuts (auto) (2.0-8.3) x10*3/uL Absolute Nucleated RBC (0.0-0.012) X10*3/uL Nucleated RBC % (auto) (0.0-0.2) /100WBC Sodium (135-145) mmol/L Potassium (3.3-5.1) mmol/L Chloride (96-108) mmol/L Carbon Dioxide (22-29) mmol/L Anion Gap (12-20) BUN (9-16) mg/dL Creatinine (0.5-1.4) mg/dL Estim Creat Clear Calc Estimated GFR Random Glucose (60-115) mg/dL Calcium (8.4-10.2) mg/dL Total Bilirubin (0.0-1.0) mg/dL Direct Bilirubin (0.0-0.5) mg/dL AST (5-31) U/L ALT (0-31) U/L Alkaline Phosphatase (39-117) U/L Total Protein (6.5-8.0) g/dL Albumin (3.5-5.0) g/dL Lipase (8-78) U/L Beta HCG, Quant mIU/mL Urine Color Urine Appearance Urine pH (5.0-9.0) Ur Specific [place] (1.005-1.025) Urine Protein (Neg-Trace) mg/dL Urine Glucose (UA) (Negative) mg/dL Urine Ketones (Negative) mg/dL Urine Blood (Negative) Urine Nitrite (Negative) Ur Leukocyte Esterase (Negative) Urine RBC (0-2) /HPF Urine WBC (0-5) /HPF Ur Squamous Epith Cells (0-2) /HPF Urine Bacteria (None Seen) Hyaline Casts (0-2) /LPF Blood Type O Positive Discharge Plan Discharge Clinical Impression: Vaginal bleeding, Threatened , Intrauterine Patient Disposition: Home, Self-Care Instructions: Threatened Miscarriage (ED) Additional Instructions: Your red blood cell counts are unchanged from 6 days prior which is reassuring. Your urine revealed no evidence of an infection. Your quantitative beta HCG on 12/29/2021 was 154,694 and today it went up to 176,810, this is reassuring Sometimes bleeding in early can be normal however sometimes a can be caused by a miscarriage. At this time I do not think that your miscarriage in however you should rest, avoid having sex, and drink plenty of fluids. Call our qualification engineer, Dr. Garcia on Thursday to try to make a follow-up with the next available provider in the office. You need a repeat quantitative beta-hCG in 4-7 days. Please return to the emergency department if your symptoms get worse or if you develop any symptoms that are concerning to you. Prescriptions: No Action cephalexin 500 mg tablet 500 mg PO TID 14 Days Qty: 42 0RF prenat.vits,jaime,bwu-llet-kqfbr Tablet 1 tab PO DAILY Qty: 30 2RF Referrals: Hilario Garcia MD [Physician] - 1 week
== END 2022-01-04 14:36 | disposition home or self-care (01) ==
PROVIDERS: Physician Assistant; Emergency Provider Emergency Medicine Emergency Medical Services
DX: O20.0 Threatened abortion (principal); Z3A.08 8 weeks gestation of pregnancy
CPT/HCPCS: 36415; 76801; 76817; 80048; 80076; 81001; 83690; 84702; 85025; 86900; 86901; 99284

== ENCOUNTER 2023-02-20 18:17 | Outpatient (REF) | payer MEDICAID, SELFPAY | END 2023-02-20 18:18 | disposition home or self-care (01) | LOC: HO.HHCLNP 18:17 | PROVIDERS: Visit Provider Emergency Medicine | DX: R68.89 Other general symptoms and signs (principal) | CPT/HCPCS: 87086 ==

== ENCOUNTER 2023-05-08 11:00 | Outpatient (RCR) | payer MEDICAID, SELFPAY | END 2023-05-08 11:23 | disposition home or self-care (01) | LOC: HO.OT 11:00 | PROVIDERS: PCP Nurse Practitioner Family; Visit Provider Nurse Practitioner Family | DX: M79.631 Pain in right forearm (principal) | CPT/HCPCS: 97110; 97166; 97535 ==

== ENCOUNTER 2023-05-11 10:49 | Outpatient (REF) | payer MEDICAID, SELFPAY ==
[2023-05-11 12:16] LABS: Basophils Percent Auto 0.4 % (0-2); Eosinophils Absolute Auto 0.1 X10*3/uL (0.0-0.4); Hematocrit 41.8 % (37.0-47.0); Imm Gran Abs Auto 0.02 X10*3/uL (0.00-0.03); Imm Gran Pct Auto 0.4 % (0.0-0.4); Lymphocytes Absolute Auto 2.4 X10*3/uL (1.2-4.9); MANUAL DIFF FLAG SCAN; Mean Corpuscular HGB Conc 31.1 g/dl (31.0-35.0); Mean Corpuscular Volume 77.1 fL (80.0-98.0); Mean Platelet Volume 11.4 fL (9.4-12.3); Monocytes Absolute Auto 0.3 X10*3/uL (0.1-1.2); Monocytes Percent Auto 6.5 % (2-11); Neutrophils Absolute Auto 2.3 x10*3/uL (2.0-8.3); Neutrophils Percent Auto 45.7 % (45-73); PLT CLUMP 1; Red Blood Count 5.42 X10*6/uL (4.20-5.50); Red Cell Distribution Width 14.4 % (11.0-16.0); SCAN SMEAR FLAG 1
[2023-05-11 13:40] LABS: Platelet Count 256 X10*3/uL (160-400); White Blood Count 5.1 X10*3/uL (4.8-10.8)
[2023-05-11 13:41] LABS: SLIDE REVIEW VERIFIED
[2023-05-11 14:07] LABS: Iron 96 mcg/dL (30-160); Percent Iron Saturation 30 % (15-50); TSH reflex Free T4 1.47 uIU/mL (0.32-4.0); Total Iron Binding Capacity 316 mcg/dL (228-428); Unsaturated Iron Binding 220 ug/dL
[2023-05-11 18:29] LABS: Appearance Urine Clear; Color Urine Yellow; Glucose Urine UA Negative (Negative); Leukocyte Esterase Urine Negative (Negative); Nitrite Urine Negative (Negative); PH 6.5 (5.0-9.0); UMIC TRIGGER UACC YES; Urine Blood Moderate (2+) (Negative); Urine Ketones Negative (Negative); Urine Protein Negative (Neg-Trace)
[2023-05-11 18:45] LABS: Bacteria Urine Trace (None Seen); Hyaline Casts Urine 0-2 /LPF (0-2); RBC Urine 0-2 /HPF (0-2); Squamous Epithelial Cell Urine 0-2 /HPF (0-2); WBC Urine 0-5 /HPF (0-5)
[2023-05-12 23:09] LABS: C. trachomatis RNA TMA NOT DETECTED (NOT DETECTED); N. gonorrhoeae RNA TMA NOT DETECTED (NOT DETECTED)
== END 2023-05-11 10:50 | disposition home or self-care (01) ==
LOC: HO.HHCL 10:49
PROVIDERS: Visit Provider Nurse Practitioner Family
DX: R10.2 Pelvic and perineal pain (principal); R63.5 Abnormal weight gain; R42 Dizziness and giddiness
CPT/HCPCS: 36415; 81001; 81513; 83540; 84443; 85025; 87491; 87591

== ENCOUNTER 2023-08-30 13:11 | Emergency (ER) | payer MEDICAID, SELFPAY ==
--- NOTE | ~2023-08-30 | US_ITS ---
EXAMINATION: US OBSTETRICAL ULTRASOUND CLINICAL INFORMATION: Ectopic , miscarriage, back pain, vomiting COMPARISON: None available. LMP: Unknown. TECHNIQUE: Ultrasound of the maternal pelvis is performed using transabdominal transducer. M-mode Doppler is also performed. FINDINGS: There is a single intrauterine gestational sac with visible yolk sac, embryo, and embryonic cardiac activity. There is no significant subchorionic hemorrhage or hematoma. Embryonic HR: 170 beats per minute. CRL (crown rump length): 2.23 cm (9 weeks 0 days +/- 4 days). JAZMINE (estimated date of delivery): 04/03/2024 +/- 4 days. MATERNAL ADNEXA: The right maternal ovary measures 5.0 x 3.0 x 3.6 cm. Normal size and appearance The left maternal ovary is not identified There is no significant maternal adnexal mass. No maternal pelvic ascites. US/US OB <= 14 weeks fetus IMPRESSION: 1. Single living intrauterine gestation with ultrasound gestational age of 9 weeks 0 days +/- 4 days. 2. Estimated date of delivery is 04/03/2024 +/- 4 days. 3. No maternal adnexal mass or pelvic ascites.
[2023-08-30 13:32] VITALS: BP 104/41; PULSE 78; RESP 18; TEMP 37.1; O2SAT 98; BMI 37.6
--- NOTE | 2023-08-30 13:38 | ED_ITS ---
HPI - General Adult General Chief complaint: General Medical Stated complaint: Headache Time Seen by Provider: 08/30/23 13:42 Source: patient Mode of arrival: ambulatory Limitations: no limitations History of Present Illness ED Provider: Gustavo Frazier HPI narrative: 28 yold female with pmh headaches in the past and now presents to the ED for Headache, vomitting, and low back pain. Patient states found out she was in July but does not know how far along she is. Patient states since giving to her last child her menstruation has been irregular. Patient denies any neck stiffness, fever, chills, recent trauma, chest pain, shortness of breath, numbness/tingling, slurred speech, or change in loss of vision. Patient denies any vaginal discharge, vaginal bleeding, or abdominal pain. Related Data Previous Rx's ?Medication ?Instructions ?Recorded cephalexin 500 mg tablet 500 mg PO TID 14 days #42 tabs 12/29/21 prenat.vits,jaime,unt-twry-rqtsk 1 tab PO DAILY #30 tabs 12/29/21 acetaminophen 325 mg capsule 325 mg PO QID PRN pain 7 days #28 08/30/23 (Tylenol) caps vits no.130-ferrous fum 1 tab PO DAILY #30 tabs 08/30/23 27 mg iron-folic acid 800 mcg tablet ( Vitamin) pyridoxine (vitamin B6) 10 mg 10 mg PO QID 5 days #20 tabs 08/30/23 tablet Allergies Allergy/AdvReac Type Severity Reaction Status Date / Time No Known Allergies Allergy Verified 08/30/23 13:38 Review of Systems 2 Review of Systems: headache, and low back pain Yes all other systems are reviewed and are negative [facility] Social History Social History Advance Directives: No Advance Directives Information Provided: Yes Physical Exam ED Vital Signs: Vital Signs - 24 hr 08/30/23 13:32 08/30/23 13:59 Temperature 98.8 F 97.9 F Pulse Rate 78 75 Respiratory Rate 18 18 Blood Pressure 104/41 L 104/50 L Pulse Oximetry 98 97 Oxygen Delivery Method Room Air Room Air BMI result Body Mass Index 37.6 Const General: cooperative, healthy appearing, comfortable, no acute distress, well developed, alert, awake and Physically active Orientation/consciousness: patient oriented x3 [facility] Head: Yes normal to inspection, Yes No palpable skull fracture present, Yes normocephalic, Yes atraumatic and No abrasion Eyes General: appearance normal, both eyes and all related structures Neck Neck: Yes normal visual inspection, Yes full ROM, Yes no lymphadenopathy, Yes no meningeal signs, Yes trachea midline, Yes supple, No anterior neck swelling and No tender Chest Chest palpation & inspection: normal inspection of the chest and normal palpation of entire chest wall Resp Effort & Inspection: normal respiratory effort and able to speak in complete sentences Auscultation: clear to auscultation bilaterally Cardio Jugular venous distension: no JVD Heart sounds: S1 normal heart sound present and S2 normal heart sound present GI Inspection: Yes normal to inspection Palpation (GI): Soft to palpation, not firm, nontender, no guarding and not rigid General: No CVA tenderness and Yes no CVA tenderness Back/Spine/Pelvis Back: no CVA tenderness, No CVA tenderness and back tenderness (lumbar) Skin General skin exam: no rashes or lesions noted, elasticity normal and turgor normal Neuro General: patient oriented x3, gait normal, moves all extremities, Normal light touch and pain sensation, no meningeal signs, no focal motor deficits, CN's II- XI intact bilaterally and normal sensation to monofilament Extrem General: Yes normal to inspection, Yes full ROM and Yes capillary refill normal Psych Appearance: grossly normal, well kempt and not disheveled Course Course Course Narrative: RME: Done By DONTE Gentile. 28-year-old female presents to the ED for headache since last night and low back pain. Patient denies any fever, chills, neck pain, recent trauma, neck stiffness, chest pain, shortness of breath. Patient also states newly does not know how far along she is. NIH score is 0. Negative for neck stiffness or photophobia. Labs SARs ordered Tylenol ordered Medications Administered Discontinued Medications Generic Name Dose Route Start Last Admin Trade Name Freq PRN Reason Stop Dose Admin Acetaminophen 975 mg 08/30/23 13:36 08/30/23 14:03 Acetaminophen 325 Mg Tablet PO 08/30/23 13:37 975 mg ONCE ONE Administration Sodium Chloride 1,000 mls @ 999 mls/hr 08/30/23 13:42 08/30/23 13:48 Ns IV 08/30/23 14:42 Not Given .Q1H1M STA Lactated Ringer's 1,000 mls @ 999 mls/hr 08/30/23 13:44 08/30/23 15:40 Lr IV 08/30/23 14:44 Infused .Q1H1M STA Infusion Lactated Ringer's 1,000 mls @ 999 mls/hr 08/30/23 14:13 08/30/23 15:42 Lr IV 08/30/23 15:13 999 mls/hr .Q1H1M STA Administration Metoclopramide HCl 10 mg 08/30/23 13:44 08/30/23 14:03 Metoclopramide Hcl 10 Mg/2 Ml Vial IVPUSH 08/30/23 13:45 10 mg ONCE ONE Administration Medical Decision Making Medical Decision Making [facility] Narrative: 28 yold female presents to the ED for headache, low back pain, slight vomitting, and is . Patient denies any trauma. Patient denies any abdominal pain, vaginal discharge, vaginal bleeding. Patient's labs are normal. UA negative for UTI. Patient given lactic rigors due to ketones being 40. Patient given Reglan for headache and vomiting. Patient is given fluids. Patient headache feels better after Tylenol Reglan and fluids. Ob pelvic ultrasound shows IUP 9 weeks with heart rate. Not suspect ectopic . Not suspecting threatened . Not suspecting meningitis. Not suspecting cavernous thrombosis. Not suspecting brain bleed. Not suspecting stroke. Not suspecting spinal fracture or epidural abscess/caudina eqina. Patient explained worrisome signs and informed to return to the ED immediately. Patient informed to follow up with OBGYN Differential Diagnosis Differential Diagnoses: The differential diagnosis associated with the presentation includes (Hyperemesis gravidarum, threatened , ectopic COVID) Admission/Observation Consideration of admission/observation: Escalation of care including admission/observation considered Lab Data [facility] Lab Attestation statement: I reviewed the patient's lab results. 08/30/23 13:49 08/30/23 13:49 Labs: Lab Results 08/30/23 08/30/23 Range/Units 13:47 13:49 WBC 5.4 (4.8-10.8) X10*3/uL RBC 4.79 (4.20-5.50) X10*6/uL Hgb 11.7 L (12.0-16.0) g/dl Hct 34.9 L (37.0-47.0) % MCV 72.9 L (80.0-98.0) fL MCH 24.4 L (27.0-33.0) pg MCHC 33.5 (31.0-35.0) g/dl RDW 13.9 (11.0-16.0) % Plt Count 266 (160-400) X10*3/uL MPV 10.9 (9.4-12.3) fL Immature Gran % (Auto) 0.2 (0.0-0.4) % Neut % (Auto) 62.2 (45-73) % Lymph % (Auto) 31.5 (20-40) % [place] % (Auto) 5.5 (2-11) % Eos % (Auto) 0.4 (0-4) % Baso % (Auto) 0.2 (0-2) % Lymph # (Auto) 1.7 (1.2-4.9) X10*3/uL [place] # (Auto) 0.3 (0.1-1.2) X10*3/uL Eos # (Auto) 0.0 (0.0-0.4) X10*3/uL Baso # (Auto) 0.0 (0.0-0.2) X10*3/uL Abs Immat Gran (auto) 0.01 (0.00-0.03) X10*3/uL Absolute Neuts (auto) 3.4 (2.0-8.3) x10*3/uL Absolute Nucleated RBC 0.000 (0.0-0.012) X10*3/uL Nucleated RBC % (auto) 0.0 (0.0-0.2) /100WBC PT 14.3 H (11.1-13.3) SEC INR 1.2 H (0.9-1.1) APTT 29.3 (26.0-36.8) SEC Sodium 134 L (135-145) mmol/L Potassium 3.5 (3.3-5.1) mmol/L Chloride 106 (96-108) mmol/L Carbon Dioxide 19 L (22-29) mmol/L Anion Gap 13 (12-20) BUN 5 L (9-16) mg/dL Creatinine 0.72 (0.5-1.4) mg/dL Estim Creat Clear Calc 129.6 Estimated GFR > 60 Random Glucose 109 (60-115) mg/dL Calcium 8.8 D (8.4-10.2) mg/dL Total Bilirubin 0.5 (0.0-1.0) mg/dL AST 18 (5-31) U/L ALT 15 (0-31) U/L Alkaline Phosphatase 44 (39-117) U/L Total Protein 6.9 (6.5-8.0) g/dL Albumin 4.0 (3.5-5.0) g/dL Beta HCG, Quant 099496 mIU/mL Urine Color Yellow Urine Appearance Clear Urine pH 6.5 (5.0-9.0) Ur Specific [place] >= 1.030 H (1.005-1.025) Urine Protein Trace (Neg-Trace) mg/dL Urine Glucose (UA) Negative (Negative) mg/dL Urine Ketones 40 (Negative) mg/dL Urine Blood Negative (Negative) Urine Nitrite Negative (Negative) Ur Leukocyte Esterase Negative (Negative) Urine Test POSITIVE H (NEGATIVE) Influenza Type A (PCR) NEGATIVE (Negative) Influenza Type B (PCR) NEGATIVE (Negative) RSV RNA Qual (PCR) NEGATIVE (Negative) SARS-CoV-2 RNA (RT-PCR) NEGATIVE (Negative) Blood Type O Positive Independent Interpretation I performed an independent interpretation of an: Ultrasound Radiology Impression Discussion of test interpretation with radiology: I have reviewed the radiologist's reading. Independent Historian Clinical information obtained from an independent historian. History obtained from or confirmed by: Other (patient) External Record Review External record reviewed: Other (prior visits) Prescription Management I considered prescription management with: Pain Medication Discharge Plan Discharge Clinical Impression: Headache, Hyperemesis gravidarum, Patient Disposition: Home, Self-Care Instructions: (ED), Hyperemesis Gravidarum (ED), Acute Headache (ED) Additional Instructions: Recommend follow-up with your OBGYN. Return to the ED immediately for any abdominal pain, vaginal discharge, vaginal bleeding, abdominal pain, neck stiffness, photophobia, severe headache, nausea, vomiting, inability tolerate solid food/liquid, chest pain, shortness of breath, slurred speech, facial droop, paralysis of extremities or any other concerning symptoms. HCG is [id number] US/US OB <= 14 weeks fetus IMPRESSION: 1. Single living intrauterine gestation with ultrasound gestational age of 9 weeks 0 days +/- 4 days. 2. Estimated date of delivery is 04/03/2024 +/- 4 days. 3. No maternal adnexal mass or pelvic ascites. Prescriptions: New Vitamin 27 mg iron- 800 mcg tablet 1 tab PO DAILY Qty: 30 0RF acetaminophen [Tylenol] 325 mg capsule 325 mg PO QID PRN (Reason: pain) 7 Days Qty: 28 0RF pyridoxine (vitamin B6) 10 mg tablet 10 mg PO QID 5 Days Qty: 20 0RF No Action cephalexin 500 mg tablet 500 mg PO TID 14 Days Qty: 42 0RF prenat.vits,jaime,mjl-iqgz-idtcl Tablet 1 tab PO DAILY Qty: 30 2RF Discharge Date/Time: 08/30/23 17:15 Print Language: Jason Steinberg
[2023-08-30 13:59] VITALS: BP 104/50; PULSE 75; RESP 18; TEMP 36.6; O2SAT 97
[2023-08-30 13:59] LABS: MANUAL DIFF FLAG NO
[2023-08-30 14:00] LABS: Basophils Percent Auto 0.2 % (0-2); Eosinophils Percent Auto 0.4 % (0-4); Hematocrit 34.9 % (37.0-47.0); Hemoglobin 11.7 g/dl (12.0-16.0); Imm Gran Abs Auto 0.01 X10*3/uL (0.00-0.03); Imm Gran Pct Auto 0.2 % (0.0-0.4); Lymphocytes Absolute Auto 1.7 X10*3/uL (1.2-4.9); Lymphocytes Percent Auto 31.5 % (20-40); Mean Corpuscular HGB Conc 33.5 g/dl (31.0-35.0); Mean Corpuscular Hemoglobin 24.4 pg (27.0-33.0); Mean Corpuscular Volume 72.9 fL (80.0-98.0); Mean Platelet Volume 10.9 fL (9.4-12.3); Monocytes Absolute Auto 0.3 X10*3/uL (0.1-1.2); Monocytes Percent Auto 5.5 % (2-11); Neutrophils Absolute Auto 3.4 x10*3/uL (2.0-8.3); Neutrophils Percent Auto 62.2 % (45-73); Platelet Count 266 X10*3/uL (160-400); Red Blood Count 4.79 X10*6/uL (4.20-5.50); Red Cell Distribution Width 13.9 % (11.0-16.0); White Blood Count 5.4 X10*3/uL (4.8-10.8)
[2023-08-30 14:03] LABS: Appearance Urine Clear; Color Urine Yellow; Glucose Urine UA Negative (Negative); Leukocyte Esterase Urine Negative (Negative); Nitrite Urine Negative (Negative); PH 6.5 (5.0-9.0); Specific Gravity - Urine >= 1.030 (1.005-1.025); Urine Blood Negative (Negative); Urine Ketones 40 mg/dL (Negative); Urine Protein Trace mg/dL (Neg-Trace)
[2023-08-30] MEDS: Metoclopramide HCl 10 MG/2 ML VIAL IVPUSH (14:03)
[2023-08-30] MEDS: Lactated Ringers 1,000 ML 999 ML IV ×2 (14:03→15:42)
[2023-08-30] MEDS: Acetaminophen 325 MG TABLET 975 MG PO (14:03)
[2023-08-30 14:05] LABS: UPreg QC Valid YES; Urine Pregnancy POSITIVE (NEGATIVE)
[2023-08-30 14:06] LABS: INTERNATIONAL NORM RATIO 1.2 (0.9-1.1); Prothrombin Time 14.3 SEC (11.1-13.3)
--- NOTE | 2023-08-30 14:07 | PC.NURSE ---
pt a&ox3, iv inserted, labs previously drawn in triage, pt ivf started per order, pt medicated per order, call pichardo within reach, will continue to monitor
[2023-08-30 14:09] LABS: Partial Thromboplastin Time 29.3 SEC (26.0-36.8)
[2023-08-30 14:36] LABS: Alanine Aminotransferase 15 U/L (0-31); Alkaline Phosphatase 44 U/L (39-117); Anion Gap 13 (12-20); Aspartate Amino Transferase 18 U/L (5-31); Bilirubin Total 0.5 mg/dL (0.0-1.0); Blood Urea Nitrogen 5 mg/dL (9-16); Calcium 8.8 mg/dL (8.4-10.2); Carbon Dioxide 19 mmol/L (22-29); Chloride 106 mmol/L (96-108); Creatinine Clr Calc Pharmacy 129.6; Estimated Glomerular Filt Rate > 60; Glucose Random 109 mg/dL (60-115); Potassium 3.5 mmol/L (3.3-5.1); Sodium 134 mmol/L (135-145); Total Protein 6.9 g/dL (6.5-8.0)
[2023-08-30 14:58] LABS: Influenza A PCR NEGATIVE (Negative); Influenza B PCR NEGATIVE (Negative); Resp Syncy Virus RNA Qual PCR NEGATIVE (Negative); SARS COV2 PCR INHOUSE NEGATIVE (Negative)
--- NOTE | 2023-08-30 15:18 | PC.NURSE ---
pt to us. 1st bag ivf continues to run slowly
--- NOTE | 2023-08-30 15:44 | PC.NURSE ---
pt returned from us, second bag of IVF hung.
[2023-08-30 17:15] VITALS: BP 108/54; PULSE 76; RESP 18; TEMP 36.7; O2SAT 98
== END 2023-08-30 17:15 | disposition home or self-care (01) ==
PROVIDERS: Physician Assistant; Emergency Provider Emergency Medicine; PCP Nurse Practitioner Family
DX: O21.0 Mild hyperemesis gravidarum (principal); R51.9 Headache, unspecified; M54.50 Low back pain, unspecified; Z3A.01 Less than 8 weeks gestation of pregnancy; Z03.818 Encounter for observation for suspected exposure to other biological agents ruled out; Z79.899 Other long term (current) drug therapy
CPT/HCPCS: 0241U; 76801; 80053; 81003; 81025; 84702; 85025; 85610; 85730; 86900; 86901; 96360; 96365; 96366; 96374; 96375; 99284; J2765; J7120

== ENCOUNTER 2023-09-11 20:19 | Emergency (ER) | payer MEDICAID, SELFPAY ==
[2023-09-11 20:22] VITALS: BP 105/64; PULSE 78; RESP 16; TEMP 36.9; O2SAT 98; BMI 38.3
--- NOTE | 2023-09-11 20:26 | ED.GENADULT ---
HPI - General Adult General Chief complaint: Nausea/Vomiting/Diarrhea Stated complaint: weakness and vomiting, is Time Seen by Provider: 09/11/23 21:13 Source: patient Mode of arrival: ambulatory Limitations: language barrier (Patient speaks Guyanese Creole, she understands Lebanese but does not speak Lebanese therefore iPad fire officer was used) History of Present Illness ED Provider: Dr. Randall Gee HPI narrative: 28-year-old female 10 weeks 5 day based on JAZMINE of 04/03/2024 from ultrasound on 08/30/2019 who presents emergency department for evaluation of nausea, vomiting, hematoma and epigastric abdominal pain. Patient states she has been vomiting since the beginning of her . She states she vomits 4 times a day. Patient states that she has been taking acetaminophen and vitamins but does not have an antiemetic. Patient states that today she vomited up a blood clot and this concerned her so she came to the emergency department for evaluation. Patient states she is having heartburn like symptoms and points to her epigastric area, states the pain is constant and worse with vomiting. She denies lower abdominal pain or cramping. She denies any vaginal bleeding or vaginal discharge. Patient was seen in the emergency department for headache and lower back pain. She had an ultrasound at that time which revealed a single intrauterine 9 weeks 0 days with JAZMINE of 04/03/2024 +/-4 days. Related Data Previous Rx's ?Medication ?Instructions ?Recorded cephalexin 500 mg tablet 500 mg PO TID 14 days #42 tabs 12/29/21 prenat.vits,jaime,gdt-lcyk-vyran 1 tab PO DAILY #30 tabs 12/29/21 acetaminophen 325 mg capsule 325 mg PO QID PRN pain 7 days #28 08/30/23 (Tylenol) caps vits no.130-ferrous fum 1 tab PO DAILY #30 tabs 08/30/23 27 mg iron-folic acid 800 mcg tablet ( Vitamin) pyridoxine (vitamin B6) 10 mg 10 mg PO QID 5 days #20 tabs 08/30/23 tablet cimetidine 800 mg tablet 800 mg PO BID #60 tabs 09/11/23 ondansetron 4 mg disintegrating 4 mg PO Q6-8H PRN nausea and 09/11/23 tablet vomiting #30 tabs Allergies Allergy/AdvReac Type Severity Reaction Status Date / Time No Known Allergies Allergy Verified 09/11/23 20:37 Review of Systems Review of Systems: Yes all other systems are reviewed and are negative [facility] Past Medical History [facility] Narrative: Social history: She denies tobacco, alcohol or drug use. Social History Social History Smoked in Last 30 Days: No Advance Directives: No Advance Directives Information Provided: No Do you have a plan to hurt others: No Plan Physical Exam ED Vital Signs: Vital Signs - 24 hr 09/11/23 20:22 09/11/23 22:10 09/11/23 22:32 Temperature 98.5 F Pulse Rate 78 63 69 Respiratory Rate 16 16 18 Blood Pressure 105/64 92/51 L 111/70 Pulse Oximetry 98 100 97 Oxygen Delivery Method Room Air Room Air Room Air 09/11/23 23:46 Temperature 98.5 F Pulse Rate 69 Respiratory Rate 18 Blood Pressure 111/70 Pulse Oximetry 97 Oxygen Delivery Method Room Air BMI result Body Mass Index 38.3 Vital signs were normal Exam: General: Awake, alert in no distress Head: Normocephalic, atraumatic EENT: PERRL, Lids normal, sclera normal, conjunctiva normal, nose normal , ears normal, throat without erythema or exudates Neck: Supple, no adenopathy Lung: breath sounds symmetric, no wheezing, rales or rhonchi Chest: symmetric movement, nontender Heart: regular rate and rhythm, normal S1, S2 no murmurs or rubs Abdomen: soft, moderate epigastric tenderness, nondistended, normal bowel sounds Back: no vertebral tenderness, no CVAT Extremities: no deformities, moves all extremities symmetrically Neuro: Awake, alert, oriented, normal speech, cranial nerves intact, moves all extremities symmetrically Psych: Pleasant, cooperative Course Course Course Narrative: This is a Rapid Medical Examination (RME) performed by Morgan Germain PA-C in triage. Full HPI, ROS, assessment and treatment plan per primary provider in the Main ED. 28 yo hatian-creole speaking female, currently 10 wks , here for eval of nausea, vomiting, weakness x days. reports seeing blood streaks within the vomit. seen here on 08/30/23 for same. discharged home w/ vitamin b6 which she has been taking w/o relief. Has not establish care with OBGYN. denies fever, cp, abdominal cramping/pain, vaginal bleeding. Plan: labs, UA Medications Administered Discontinued Medications Generic Name Dose Route Start Last Admin Trade Name Dominique PRN Reason Stop Dose Admin Sodium Chloride 1,000 mls @ 999 mls/hr 09/11/23 21:41 09/11/23 23:35 Ns IV 09/11/23 22:41 Infused .Q1H1M STA Infusion Ondansetron HCl 4 mg 09/11/23 21:41 09/11/23 21:48 Ondansetron Hcl 4 Mg/2 Ml Vial IVPUSH 09/11/23 21:42 4 mg ONCE ONE Administration Medical Decision Making Medical Decision Making [facility] Narrative: 28-year-old female 10 weeks 5 day based on JAZMINE of 04/03/2024 from ultrasound on 08/30/2019 who presents emergency department for evaluation of nausea, vomiting, hematoma and epigastric abdominal pain. Vital signs were normal. Physical examination revealed epigastric tenderness otherwise was unremarkable. Differential diagnosis: ?Includes but is not limited to emesis secondary to , hematemesis secondary to Bailey-Regan tear, anemia, volume depletion, electrolyte abnormalities Following evaluation was ordered: CBC, BMP, magnesium, quantitative beta-hCG Patient was initially treated with the following: IV insert by nurse, Normal saline x1 L, Zofran 4 mg IV Course: 21:48 My interpretation patient's laboratory evaluation as follows: WBC was normal 5300. Microcytic anemia with an H&H of 11 and 34 with an MCV of 73. This is unchanged compared to an H&H from 08/30/2019 06/05/2010 0.7 and 34.9. Platelet count was normal 243,000. CO2 low 28. AST and ALT were low 33 and 39. Lipase was normal. Magnesium was normal. Quantitative beta-hCG was 135,507 this was increased compared to a value of 204,781 on 08/30/2023. This is reassuring that the quantitative beta-hCG has gone up in the H&H stable compared to 12 days prior. 23:21 Patient is feeling significantly better after the above treatment. Patient was given a prescription for Zofran 4 mg ODT every 6 hours as needed for nausea and vomiting and cimetidine or dyspepsia/gastritis. I did tell the patient that she needs to call [facility] to get care. Patient was given printed and verbal instructions and discharged home. Lab Data 09/11/23 20:53 09/11/23 20:53 Labs: Lab Results 09/11/23 09/11/23 Range/Units 20:52 20:53 WBC 5.3 (4.8-10.8) X10*3/uL RBC 4.71 (4.20-5.50) X10*6/uL Hgb 11.4 L (12.0-16.0) g/dl Hct 34.5 L (37.0-47.0) % MCV 73.2 L (80.0-98.0) fL MCH 24.2 L (27.0-33.0) pg MCHC 33.0 (31.0-35.0) g/dl RDW 13.6 (11.0-16.0) % Plt Count 245 (160-400) X10*3/uL MPV 10.1 (9.4-12.3) fL Immature Gran % (Auto) 0.2 (0.0-0.4) % Neut % (Auto) 59.7 (45-73) % Lymph % (Auto) 32.2 (20-40) % [place] % (Auto) 6.9 (2-11) % Eos % (Auto) 0.6 (0-4) % Baso % (Auto) 0.4 (0-2) % Lymph # (Auto) 1.7 (1.2-4.9) X10*3/uL [place] # (Auto) 0.4 (0.1-1.2) X10*3/uL Eos # (Auto) 0.0 (0.0-0.4) X10*3/uL Baso # (Auto) 0.0 (0.0-0.2) X10*3/uL Abs Immat Gran (auto) 0.01 (0.00-0.03) X10*3/uL Absolute Neuts (auto) 3.1 (2.0-8.3) x10*3/uL Absolute Nucleated RBC 0.000 (0.0-0.012) X10*3/uL Nucleated RBC % (auto) 0.0 (0.0-0.2) /100WBC Sodium 137 (135-145) mmol/L Potassium 4.1 (3.3-5.1) mmol/L Chloride 107 (96-108) mmol/L Carbon Dioxide 20 L (22-29) mmol/L Anion Gap 14 (12-20) BUN 4 L (9-16) mg/dL Creatinine 0.63 (0.5-1.4) mg/dL Estim Creat Clear Calc 140.8 Estimated GFR > 60 Random Glucose 95 (60-115) mg/dL Calcium 9.2 (8.4-10.2) mg/dL Magnesium 2.0 (1.6-2.6) mg/dL Total Bilirubin 0.5 (0.0-1.0) mg/dL AST 33 H (5-31) U/L ALT 39 H (0-31) U/L Alkaline Phosphatase 43 (39-117) U/L Total Protein 7.1 (6.5-8.0) g/dL Albumin 4.1 (3.5-5.0) g/dL Lipase 29 (8-78) U/L Beta HCG, Quant 790249 mIU/mL Urine Color Yellow Urine Appearance Clear Urine pH 6.0 (5.0-9.0) Ur Specific [place] >= 1.030 H (1.005-1.025) Urine Protein 30 (1+) H (Neg-Trace) mg/dL Urine Glucose (UA) Negative (Negative) mg/dL Urine Ketones 80 (Negative) mg/dL Urine Blood Negative (Negative) Urine Nitrite Negative (Negative) Ur Leukocyte Esterase Negative (Negative) Urine RBC 0-2 (0-2) /HPF Urine WBC 0-5 (0-5) /HPF Ur Squamous Epith Cells 3-5 (0-2) /HPF Urine Bacteria None Seen (None Seen) Hyaline Casts 0-2 (0-2) /LPF Discharge Plan Discharge Clinical Impression: Vomiting affecting , Gastritis, First trimester , Microcytic anemia, Bailey-Regan tear Patient Disposition: Home, Self-Care Instructions: Nausea and Vomiting in (ED), Bailey-Regan Syndrome (ED) Additional Instructions: Your blood work did reveal anemia but this is unchanged from your previous values which is reassuring The blood in your vomit today was caused by a Bailey-Regan tear which is common when you are vomiting and the treatment is to give you medications for the nausea and vomiting. Take Zofran ODT 4 mg pills, 1 pill dissolved in your mouth every 8 hours as needed for nausea and vomiting. Take cimetidine 800 mg pills, 1 pill every 12 hours for 1 month. This will reduce the amount of acid in your stomach and help with your heartburn symptoms. Call the [facility] on Thursday morning to again to get pipeline inspector care Continue taking your vitamins Follow-up with your doctor in 2 days. Please return to the emergency department if your symptoms get worse or if you develop any symptoms that are concerning to you. Prescriptions: New cimetidine 800 mg tablet 800 mg PO BID Qty: 60 0RF Rx Instructions: administer with meals ondansetron 4 mg tablet,disintegrating 4 mg PO Q6-8H PRN (Reason: nausea and vomiting) Qty: 30 0RF No Action cephalexin 500 mg tablet 500 mg PO TID 14 Days Qty: 42 0RF prenat.vits,jaime,jge-iaqn-rzslt Tablet 1 tab PO DAILY Qty: 30 2RF Vitamin 27 mg iron- 800 mcg tablet 1 tab PO DAILY Qty: 30 0RF acetaminophen [Tylenol] 325 mg capsule 325 mg PO QID PRN (Reason: pain) 7 Days Qty: 28 0RF pyridoxine (vitamin B6) 10 mg tablet 10 mg PO QID 5 Days Qty: 20 0RF Interventions: ED Discharge Assessment Last Done: 09/11/23 23:46 Discharge Date/Time: 09/11/23 23:47 Print Language: Jason Steinberg
[2023-09-11 20:59] LABS: Appearance Urine Clear; Glucose Urine UA Negative (Negative); Leukocyte Esterase Urine Negative (Negative); Nitrite Urine Negative (Negative); Specific Gravity - Urine >= 1.030 (1.005-1.025); UMIC TRIGGER UACC YES; Urine Blood Negative (Negative); Urine Ketones 80 mg/dL (Negative); Urine Protein 30 (1+) mg/dL (Neg-Trace)
[2023-09-11 21:00] LABS: Color Urine Yellow
[2023-09-11 21:01] LABS: Bacteria Urine None Seen (None Seen); Hyaline Casts Urine 0-2 /LPF (0-2); RBC Urine 0-2 /HPF (0-2); WBC Urine 0-5 /HPF (0-5)
[2023-09-11 21:01] LABS: MANUAL DIFF FLAG NO
[2023-09-11 21:02] LABS: Basophils Percent Auto 0.4 % (0-2); Eosinophils Percent Auto 0.6 % (0-4); Hematocrit 34.5 % (37.0-47.0); Hemoglobin 11.4 g/dl (12.0-16.0); Imm Gran Abs Auto 0.01 X10*3/uL (0.00-0.03); Imm Gran Pct Auto 0.2 % (0.0-0.4); Lymphocytes Absolute Auto 1.7 X10*3/uL (1.2-4.9); Lymphocytes Percent Auto 32.2 % (20-40); Mean Corpuscular Hemoglobin 24.2 pg (27.0-33.0); Mean Corpuscular Volume 73.2 fL (80.0-98.0); Mean Platelet Volume 10.1 fL (9.4-12.3); Monocytes Absolute Auto 0.4 X10*3/uL (0.1-1.2); Monocytes Percent Auto 6.9 % (2-11); Neutrophils Absolute Auto 3.1 x10*3/uL (2.0-8.3); Neutrophils Percent Auto 59.7 % (45-73); Platelet Count 245 X10*3/uL (160-400); Red Blood Count 4.71 X10*6/uL (4.20-5.50); Red Cell Distribution Width 13.6 % (11.0-16.0); White Blood Count 5.3 X10*3/uL (4.8-10.8)
[2023-09-11 21:16] LABS: Alanine Aminotransferase 39 U/L (0-31); Albumin Level 4.1 g/dL (3.5-5.0); Alkaline Phosphatase 43 U/L (39-117); Anion Gap 14 (12-20); Aspartate Amino Transferase 33 U/L (5-31); Bilirubin Total 0.5 mg/dL (0.0-1.0); Blood Urea Nitrogen 4 mg/dL (9-16); Calcium 9.2 mg/dL (8.4-10.2); Carbon Dioxide 20 mmol/L (22-29); Chloride 107 mmol/L (96-108); Creatinine Clr Calc Pharmacy 140.8; Estimated Glomerular Filt Rate > 60; Glucose Random 95 mg/dL (60-115); Lipase 29 U/L (8-78); Potassium 4.1 mmol/L (3.3-5.1); Sodium 137 mmol/L (135-145); Total Protein 7.1 g/dL (6.5-8.0)
[2023-09-11] MEDS: 0.9 % Sodium Chloride 1,000 ML 999 ML IV (21:46)
[2023-09-11] MEDS: ondansetron HCL 4 MG/2 ML VIAL IVPUSH (21:48)
[2023-09-11 22:10] VITALS: BP 92/51; PULSE 63; RESP 16; O2SAT 100
[2023-09-11 22:32] VITALS: BP 111/70; PULSE 69; RESP 18; O2SAT 97
[2023-09-11 23:46] VITALS: BP 111/70; PULSE 69; RESP 18; TEMP 36.9; O2SAT 97
== END 2023-09-11 23:47 | disposition home or self-care (01) ==
PROVIDERS: Physician Assistant Medical; Emergency Provider Emergency Medicine Emergency Medical Services
DX: O21.9 Vomiting of pregnancy, unspecified (principal); O99.611 Diseases of the digestive system complicating pregnancy, first trimester; K29.70 Gastritis, unspecified, without bleeding; O99.011 Anemia complicating pregnancy, first trimester; K22.6 Gastro-esophageal laceration-hemorrhage syndrome; D50.0 Iron deficiency anemia secondary to blood loss (chronic); Z3A.10 10 weeks gestation of pregnancy
CPT/HCPCS: 36415; 80053; 81001; 81003; 83690; 83735; 84702; 85025; 96361; 96374; 99284; J2405

== ENCOUNTER 2023-12-18 08:17 | Emergency (ER) | payer MEDICAID, SELFPAY ==
--- NOTE | ~2023-12-18 | US_ITS ---
EXAMINATION: US RETROPERITONEAL LIMITED (RENAL ONLY) CLINICAL INFORMATION: Bilateral back pain. COMPARISON: None available. TECHNIQUE: Real-time imaging of the kidneys. FINDINGS: RIGHT KIDNEY: 11.3 x 4.1 x 5.4 cm (SAG x AP x TRV). The kidney is normal in size, contour, and echogenicity. Renal cortical thickness is normal. No calculi or focal parenchymal lesions. No hydronephrosis. LEFT KIDNEY: 11.7 x 5.0 x 4.5 cm (SAG x AP x TRV). The kidney is normal in size, contour, and echogenicity. Renal cortical thickness is normal. No calculi or focal parenchymal lesions. No hydronephrosis. US/US renal BI IMPRESSION: Unremarkable renal ultrasound. Electronically signed by: Mignon Maldonado MD 12/18/2023 02:59 PM EDT
--- NOTE | ~2023-12-18 | US_ITS ---
EXAMINATION: US , LIMITED EXAMINATION: US OBSTETRICAL LIMITED CLINICAL INFORMATION: 6 months gestation, abdominal stiffness in low back pain COMPARISON: Obstetrical ultrasound on 08/30/2023 TECHNIQUE: Real time transabdominal imaging with color and M-mode Doppler. POSITION: Cephalic PLACENTA: Anterior AMNIOTIC FLUID INDEX: 6 cm The initial dating ultrasound dated provided an estimated date of delivery of 04/03/2024. HR: 130 bpm US/US OB limited IMPRESSION: 1. Single intrauterine gestation in cephalic position with anterior placenta. 2. heart rate 130 bpm. Electronically signed by: Mignon Maldonado MD 12/18/2023 03:01 PM EDT
[2023-12-18 08:28] VITALS: BP 102/60; PULSE 84; RESP 16; TEMP 37; O2SAT 100; BMI 42.3
--- NOTE | 2023-12-18 08:39 | PC.NURSE ---
Spoke with DONTE Thornton about patient, at this time recommends to get a HCG. Order placed.
[2023-12-18 10:03] LABS: HCG Quantitative 9178 mIU/mL
--- NOTE | 2023-12-18 10:10 | ED_ITS ---
HPI - General Adult General Chief complaint: General Medical Stated complaint: general medical Time Seen by Provider: 12/18/23 08:35 Source: patient, RN notes reviewed and old records reviewed Mode of arrival: ambulatory History of Present Illness ED Provider: Hillary Esquivel PA-C HPI narrative: 28-year-old [place] Creole speaking female at 6 months gestation with JAZMINE 04/03/24, presenting to the ED complaining of headache, low back pain, and right- sided abdominal stiffness x today. Reports headache is improving at present, denies taking any medication [employer]. Admits to history of ?blood clot during 1 however everything has been normal thus far with this , follows with [facility]. Does report nausea which she takes medication for. Denies fever, chills, vomiting, diarrhea/constipation, dysuria/hematuria, vaginal bleeding or discharge Related Data Previous Rx's ?Medication ?Instructions ?Recorded cephalexin 500 mg tablet 500 mg PO TID 14 days #42 tabs 12/29/21 prenat.vits,jaime,hcc-bjdr-mdzcg 1 tab PO DAILY #30 tabs 12/29/21 acetaminophen 325 mg capsule 325 mg PO QID PRN pain 7 days #28 08/30/23 (Tylenol) caps vits no.130-ferrous fum 1 tab PO DAILY #30 tabs 08/30/23 27 mg iron-folic acid 800 mcg tablet ( Vitamin) pyridoxine (vitamin B6) 10 mg 10 mg PO QID 5 days #20 tabs 08/30/23 tablet cimetidine 800 mg tablet 800 mg PO BID #60 tabs 09/11/23 ondansetron 4 mg disintegrating 4 mg PO Q6-8H PRN nausea and 09/11/23 tablet vomiting #30 tabs Allergies Allergy/AdvReac Type Severity Reaction Status Date / Time No Known Allergies Allergy Verified 12/18/23 08:36 Review of Systems 2 Review of Systems: Yes all other systems are reviewed and are negative Constitutional: Constitutional: Reports as per HPI Neurologic: Denies Abnormal speech present [facility] Past Medical History Attestation statement: The following information was validated with the patient. Source: old records reviewed Social History Social History Advance Directives: No Advance Directives Information Provided: Yes Do you have a plan to hurt others: No Plan Physical Exam ED Vital Signs: Vital Signs - 24 hr 12/18/23 08:28 12/18/23 13:27 12/18/23 16:36 Temperature 98.6 F 98.1 F 98.4 F Pulse Rate 84 82 87 Respiratory Rate 16 16 16 Blood Pressure 102/60 94/53 L 102/63 Pulse Oximetry 100 100 100 Oxygen Delivery Method Room Air Room Air Room Air BMI result Body Mass Index 42.3 Const General: cooperative, healthy appearing and no acute distress Orientation/consciousness: patient oriented x3 Limitations: no limitations HENMT Head: Yes normal to inspection and Yes atraumatic Ears: hearing grossly normal bilaterally General nose exam: Normal external nose present Face and sinus: Yes normal facial exam Mouth: Normal oral and palatal mucosa present Throat: Yes posterior oropharynx normal Eyes General: appearance normal, both eyes and all related structures Pupils: Equal, round and reactive pupils present EOM: EOMs intact bilaterally Neck Neck: Yes normal visual inspection and Yes no meningeal signs Resp Effort & Inspection: normal respiratory effort and no respiratory distress Auscultation: clear to auscultation bilaterally, no crackles and no wheezes Cardio Rate: regular rate Heart sounds: S1 normal heart sound present and S2 normal heart sound present GI Other: Gravid uterus Palpation (GI): Soft to palpation, Tenderness to palpation present (GI) in the RLQ; with no rebound tenderness, no guarding and not rigid Other: + bilateral lumbar paraspinal reproducible MSK tenderness. No rashes or ecchymosis or erythema General: Yes no CVA tenderness Back/Spine/Pelvis Back: no CVA tenderness Skin Rashes: no rashes Wounds: no wounds Neuro General: patient oriented x3, gait normal, tone normal, moves all extremities, no meningeal signs, no focal motor deficits and CN's II-XI intact bilaterally Cranial nerves: Yes CN's II-XII intact bilaterally, Yes Equal, round and reactive pupils present and Yes Bilaterally intact EOM present Cognition (Neuro): normal cognition Speech: No Abnormal speech present Gait exam (Neuro): Normal gait present Motor exam (neuro): 5/5 motor strength present throughout Extrem General: Yes normal to inspection Course Course Course Narrative: -1523--mild anemia 9.9/30.7 > patient with baseline anemia. Likely physiologic from . -labs otherwise reassuring. Beta quant 9178. UA negative, no protein US renal BI IMPRESSION: Unremarkable renal ultrasound. US OB limited IMPRESSION: 1. Single intrauterine gestation in cephalic position with anterior placenta. 2. heart rate 130 bpm. > on re-evaluation patient reports symptomatic improvement, states headache is resolved. However abdominal stiffness still present. Not described as contractions. Will consult patient's OBGYN, [facility] -[id number]--spoke with OBGYN from [facility], recommended cervical exam and swabs including yeast/BV. State infection can cause patient's symptomology. If positive recommended treating patient, if negative safe for discharge home with close follow-up at this time. On pelvic exam white curdy discharge appreciated. Cervical os closed, no effacement. No tenderness. No CMT or adnexal tenderness/masses. No bleeding. -170--Trichomonas and yeast negative. Patient is safe for discharge home at this time. Recommended very close OBGYN follow-up. She verbalized understanding. Medications Administered Discontinued Medications Generic Name Dose Route Start Last Admin Trade Name Dominique PRN Reason Stop Dose Admin Acetaminophen 650 mg 12/18/23 09:58 12/18/23 10:39 Acetaminophen 325 Mg Tablet PO 12/18/23 09:59 650 mg ONCE ONE Administration Medical Decision Making Medical Decision Making [facility] Narrative: 28-year-old [place] Creole speaking female at 6 months gestation with JAZMINE 04/03/24, presenting to the ED complaining of headache, low back pain, and right- sided abdominal stiffness x today. On exam vital signs stable, NAD, nontoxic appearing, no focal neuro deficits, gravid uterus with right-sided abdominal tenderness elicited, no rebound or guarding. No CVAT. MSK reproducible back pain noted. Concern for normal vs complication vs ? labor vs preeclampsia. Rule out metabolic abnormalities infectious etiology. Low suspicion for CVA or ICH Plan: Labs, UA, ultrasound, consult patient's OBGYN Please refer to course for remaining clinical decision making, interpretation of labs/imaging results, and discussions with consultants and/or family members. Differential Diagnosis Differential Diagnoses: The differential diagnosis associated with the presentation includes As above Admission/Observation Consideration of admission/observation: Escalation of care including admission/observation considered Consult Healthcare Provider Management of the patient was discussed with: House Mother Lab Data [facility] Lab Attestation statement: I reviewed the patient's lab results. 12/18/23 09:32 12/18/23 09:32 Labs: Lab Results 12/18/23 12/18/23 12/18/23 Range/Units 09:32 09:32 09:32 WBC 6.8 (4.8-10.8) X10*3/uL RBC 4.03 L (4.20-5.50) X10*6/uL Hgb 9.9 L (12.0-16.0) g/dl Hct 30.7 L (37.0-47.0) % MCV 76.2 L (80.0-98.0) fL MCH 24.6 L (27.0-33.0) pg MCHC 32.2 (31.0-35.0) g/dl RDW 15.1 (11.0-16.0) % Plt Count 202 (160-400) X10*3/uL MPV 11.8 (9.4-12.3) fL Immature Gran % (Auto) 0.6 H (0.0-0.4) % Neut % (Auto) 62.3 (45-73) % Lymph % (Auto) 29.9 (20-40) % [place] % (Auto) 6.7 (2-11) % Eos % (Auto) 0.4 (0-4) % Baso % (Auto) 0.1 (0-2) % Lymph # (Auto) 2.0 (1.2-4.9) X10*3/uL [place] # (Auto) 0.5 (0.1-1.2) X10*3/uL Eos # (Auto) 0.0 (0.0-0.4) X10*3/uL Baso # (Auto) 0.0 (0.0-0.2) X10*3/uL Abs Immat Gran (auto) 0.04 H (0.00-0.03) X10*3/uL Absolute Neuts (auto) 4.3 (2.0-8.3) x10*3/uL Absolute Nucleated RBC 0.000 (0.0-0.012) X10*3/uL Nucleated RBC % (auto) 0.0 (0.0-0.2) /100WBC Hold Purple Top SEE NOTE Hold Blue Top SEE NOTE Sodium 136 Cancelled (135-145) mmol/L Potassium 4.0 Cancelled (3.3-5.1) mmol/L Chloride 110 H (96-108) mmol/L Carbon Dioxide (22-29) mmol/L Anion Gap (12-20) BUN (9-16) mg/dL Creatinine (0.5-1.4) mg/dL Estim Creat Clear Calc Estimated GFR Random Glucose (60-115) mg/dL Calcium (8.4-10.2) mg/dL Magnesium (1.6-2.6) mg/dL Total Bilirubin (0.0-1.0) mg/dL Direct Bilirubin (0.0-0.5) mg/dL AST (5-31) U/L ALT (0-31) U/L Alkaline Phosphatase (39-117) U/L Total Protein (6.5-8.0) g/dL Albumin (3.5-5.0) g/dL Lipase (8-78) U/L Beta HCG, Quant mIU/mL Urine Color Urine Appearance Urine pH (5.0-9.0) Ur Specific [place] (1.005-1.025) Urine Protein (Neg-Trace) mg/dL Urine Glucose (UA) (Negative) mg/dL Urine Ketones (Negative) mg/dL Urine Blood (Negative) Urine Nitrite (Negative) Ur Leukocyte Esterase (Negative) 12/18/23 12/18/23 12/18/23 Range/Units 09:32 09:32 09:32 WBC (4.8-10.8) X10*3/uL RBC (4.20-5.50) X10*6/uL Hgb (12.0-16.0) g/dl Hct (37.0-47.0) % MCV (80.0-98.0) fL MCH (27.0-33.0) pg MCHC (31.0-35.0) g/dl RDW (11.0-16.0) % Plt Count (160-400) X10*3/uL MPV (9.4-12.3) fL Immature Gran % (Auto) (0.0-0.4) % Neut % (Auto) (45-73) % Lymph % (Auto) (20-40) % [place] % (Auto) (2-11) % Eos % (Auto) (0-4) % Baso % (Auto) (0-2) % Lymph # (Auto) (1.2-4.9) X10*3/uL [place] # (Auto) (0.1-1.2) X10*3/uL Eos # (Auto) (0.0-0.4) X10*3/uL Baso # (Auto) (0.0-0.2) X10*3/uL Abs Immat Gran (auto) (0.00-0.03) X10*3/uL Absolute Neuts (auto) (2.0-8.3) x10*3/uL Absolute Nucleated RBC (0.0-0.012) X10*3/uL Nucleated RBC % (auto) (0.0-0.2) /100WBC Hold Purple Top Hold Blue Top Sodium (135-145) mmol/L Potassium (3.3-5.1) mmol/L Chloride Cancelled (96-108) mmol/L Carbon Dioxide 19 L Cancelled (22-29) mmol/L Anion Gap 11 L Cancelled (12-20) BUN 7 L (9-16) mg/dL Creatinine (0.5-1.4) mg/dL Estim Creat Clear Calc Estimated GFR Random Glucose (60-115) mg/dL Calcium (8.4-10.2) mg/dL Magnesium (1.6-2.6) mg/dL Total Bilirubin (0.0-1.0) mg/dL Direct Bilirubin (0.0-0.5) mg/dL AST (5-31) U/L ALT (0-31) U/L Alkaline Phosphatase (39-117) U/L Total Protein (6.5-8.0) g/dL Albumin (3.5-5.0) g/dL Lipase (8-78) U/L Beta HCG, Quant mIU/mL Urine Color Urine Appearance Urine pH (5.0-9.0) Ur Specific [place] (1.005-1.025) Urine Protein (Neg-Trace) mg/dL Urine Glucose (UA) (Negative) mg/dL Urine Ketones (Negative) mg/dL Urine Blood (Negative) Urine Nitrite (Negative) Ur Leukocyte Esterase (Negative) 12/18/23 12/18/23 12/18/23 Range/Units 09:32 09:32 09:32 WBC (4.8-10.8) X10*3/uL RBC (4.20-5.50) X10*6/uL Hgb (12.0-16.0) g/dl Hct (37.0-47.0) % MCV (80.0-98.0) fL MCH (27.0-33.0) pg MCHC (31.0-35.0) g/dl RDW (11.0-16.0) % Plt Count (160-400) X10*3/uL MPV (9.4-12.3) fL Immature Gran % (Auto) (0.0-0.4) % Neut % (Auto) (45-73) % Lymph % (Auto) (20-40) % [place] % (Auto) (2-11) % Eos % (Auto) (0-4) % Baso % (Auto) (0-2) % Lymph # (Auto) (1.2-4.9) X10*3/uL [place] # (Auto) (0.1-1.2) X10*3/uL Eos # (Auto) (0.0-0.4) X10*3/uL Baso # (Auto) (0.0-0.2) X10*3/uL Abs Immat Gran (auto) (0.00-0.03) X10*3/uL Absolute Neuts (auto) (2.0-8.3) x10*3/uL Absolute Nucleated RBC (0.0-0.012) X10*3/uL Nucleated RBC % (auto) (0.0-0.2) /100WBC Hold Purple Top Hold Blue Top Sodium (135-145) mmol/L Potassium (3.3-5.1) mmol/L Chloride (96-108) mmol/L Carbon Dioxide (22-29) mmol/L Anion Gap (12-20) BUN Cancelled (9-16) mg/dL Creatinine 0.57 Cancelled (0.5-1.4) mg/dL Estim Creat Clear Calc 155.8 Cancelled Estimated GFR > 60 Random Glucose (60-115) mg/dL Calcium (8.4-10.2) mg/dL Magnesium (1.6-2.6) mg/dL Total Bilirubin (0.0-1.0) mg/dL Direct Bilirubin (0.0-0.5) mg/dL AST (5-31) U/L ALT (0-31) U/L Alkaline Phosphatase (39-117) U/L Total Protein (6.5-8.0) g/dL Albumin (3.5-5.0) g/dL Lipase (8-78) U/L Beta HCG, Quant mIU/mL Urine Color Urine Appearance Urine pH (5.0-9.0) Ur Specific [place] (1.005-1.025) Urine Protein (Neg-Trace) mg/dL Urine Glucose (UA) (Negative) mg/dL Urine Ketones (Negative) mg/dL Urine Blood (Negative) Urine Nitrite (Negative) Ur Leukocyte Esterase (Negative) 12/18/23 12/18/23 12/18/23 Range/Units 09:32 09:32 09:32 WBC (4.8-10.8) X10*3/uL RBC (4.20-5.50) X10*6/uL Hgb (12.0-16.0) g/dl Hct (37.0-47.0) % MCV (80.0-98.0) fL MCH (27.0-33.0) pg MCHC (31.0-35.0) g/dl RDW (11.0-16.0) % Plt Count (160-400) X10*3/uL MPV (9.4-12.3) fL Immature Gran % (Auto) (0.0-0.4) % Neut % (Auto) (45-73) % Lymph % (Auto) (20-40) % [place] % (Auto) (2-11) % Eos % (Auto) (0-4) % Baso % (Auto) (0-2) % Lymph # (Auto) (1.2-4.9) X10*3/uL [place] # (Auto) (0.1-1.2) X10*3/uL Eos # (Auto) (0.0-0.4) X10*3/uL Baso # (Auto) (0.0-0.2) X10*3/uL Abs Immat Gran (auto) (0.00-0.03) X10*3/uL Absolute Neuts (auto) (2.0-8.3) x10*3/uL Absolute Nucleated RBC (0.0-0.012) X10*3/uL Nucleated RBC % (auto) (0.0-0.2) /100WBC Hold Purple Top Hold Blue Top Sodium (135-145) mmol/L Potassium (3.3-5.1) mmol/L Chloride (96-108) mmol/L Carbon Dioxide (22-29) mmol/L Anion Gap (12-20) BUN (9-16) mg/dL Creatinine (0.5-1.4) mg/dL Estim Creat Clear Calc Estimated GFR Cancelled Random Glucose 87 Cancelled (60-115) mg/dL Calcium 9.1 Cancelled (8.4-10.2) mg/dL Magnesium 1.7 (1.6-2.6) mg/dL Total Bilirubin (0.0-1.0) mg/dL Direct Bilirubin (0.0-0.5) mg/dL AST (5-31) U/L ALT (0-31) U/L Alkaline Phosphatase (39-117) U/L Total Protein (6.5-8.0) g/dL Albumin (3.5-5.0) g/dL Lipase (8-78) U/L Beta HCG, Quant mIU/mL Urine Color Urine Appearance Urine pH (5.0-9.0) Ur Specific [place] (1.005-1.025) Urine Protein (Neg-Trace) mg/dL Urine Glucose (UA) (Negative) mg/dL Urine Ketones (Negative) mg/dL Urine Blood (Negative) Urine Nitrite (Negative) Ur Leukocyte Esterase (Negative) 12/18/23 12/18/23 12/18/23 Range/Units 09:32 09:32 09:32 WBC (4.8-10.8) X10*3/uL RBC (4.20-5.50) X10*6/uL Hgb (12.0-16.0) g/dl Hct (37.0-47.0) % MCV (80.0-98.0) fL MCH (27.0-33.0) pg MCHC (31.0-35.0) g/dl RDW (11.0-16.0) % Plt Count (160-400) X10*3/uL MPV (9.4-12.3) fL Immature Gran % (Auto) (0.0-0.4) % Neut % (Auto) (45-73) % Lymph % (Auto) (20-40) % [place] % (Auto) (2-11) % Eos % (Auto) (0-4) % Baso % (Auto) (0-2) % Lymph # (Auto) (1.2-4.9) X10*3/uL [place] # (Auto) (0.1-1.2) X10*3/uL Eos # (Auto) (0.0-0.4) X10*3/uL Baso # (Auto) (0.0-0.2) X10*3/uL Abs Immat Gran (auto) (0.00-0.03) X10*3/uL Absolute Neuts (auto) (2.0-8.3) x10*3/uL Absolute Nucleated RBC (0.0-0.012) X10*3/uL Nucleated RBC % (auto) (0.0-0.2) /100WBC Hold Purple Top Hold Blue Top Sodium (135-145) mmol/L Potassium (3.3-5.1) mmol/L Chloride (96-108) mmol/L Carbon Dioxide (22-29) mmol/L Anion Gap (12-20) BUN (9-16) mg/dL Creatinine (0.5-1.4) mg/dL Estim Creat Clear Calc Estimated GFR Random Glucose (60-115) mg/dL Calcium (8.4-10.2) mg/dL Magnesium Cancelled (1.6-2.6) mg/dL Total Bilirubin 0.2 Cancelled (0.0-1.0) mg/dL Direct Bilirubin < 0.2 Cancelled (0.0-0.5) mg/dL AST 16 (5-31) U/L ALT (0-31) U/L Alkaline Phosphatase (39-117) U/L Total Protein (6.5-8.0) g/dL Albumin (3.5-5.0) g/dL Lipase (8-78) U/L Beta HCG, Quant mIU/mL Urine Color Urine Appearance Urine pH (5.0-9.0) Ur Specific [place] (1.005-1.025) Urine Protein (Neg-Trace) mg/dL Urine Glucose (UA) (Negative) mg/dL Urine Ketones (Negative) mg/dL Urine Blood (Negative) Urine Nitrite (Negative) Ur Leukocyte Esterase (Negative) 12/18/23 12/18/23 12/18/23 Range/Units 09:32 09:32 09:32 WBC (4.8-10.8) X10*3/uL RBC (4.20-5.50) X10*6/uL Hgb (12.0-16.0) g/dl Hct (37.0-47.0) % MCV (80.0-98.0) fL MCH (27.0-33.0) pg MCHC (31.0-35.0) g/dl RDW (11.0-16.0) % Plt Count (160-400) X10*3/uL MPV (9.4-12.3) fL Immature Gran % (Auto) (0.0-0.4) % Neut % (Auto) (45-73) % Lymph % (Auto) (20-40) % [place] % (Auto) (2-11) % Eos % (Auto) (0-4) % Baso % (Auto) (0-2) % Lymph # (Auto) (1.2-4.9) X10*3/uL [place] # (Auto) (0.1-1.2) X10*3/uL Eos # (Auto) (0.0-0.4) X10*3/uL Baso # (Auto) (0.0-0.2) X10*3/uL Abs Immat Gran (auto) (0.00-0.03) X10*3/uL Absolute Neuts (auto) (2.0-8.3) x10*3/uL Absolute Nucleated RBC (0.0-0.012) X10*3/uL Nucleated RBC % (auto) (0.0-0.2) /100WBC Hold Purple Top Hold Blue Top Sodium (135-145) mmol/L Potassium (3.3-5.1) mmol/L Chloride (96-108) mmol/L Carbon Dioxide (22-29) mmol/L Anion Gap (12-20) BUN (9-16) mg/dL Creatinine (0.5-1.4) mg/dL Estim Creat Clear Calc Estimated GFR Random Glucose (60-115) mg/dL Calcium (8.4-10.2) mg/dL Magnesium (1.6-2.6) mg/dL Total Bilirubin (0.0-1.0) mg/dL Direct Bilirubin (0.0-0.5) mg/dL AST Cancelled (5-31) U/L ALT 10 Cancelled (0-31) U/L Alkaline Phosphatase 53 Cancelled (39-117) U/L Total Protein 6.5 (6.5-8.0) g/dL Albumin (3.5-5.0) g/dL Lipase (8-78) U/L Beta HCG, Quant mIU/mL Urine Color Urine Appearance Urine pH (5.0-9.0) Ur Specific [place] (1.005-1.025) Urine Protein (Neg-Trace) mg/dL Urine Glucose (UA) (Negative) mg/dL Urine Ketones (Negative) mg/dL Urine Blood (Negative) Urine Nitrite (Negative) Ur Leukocyte Esterase (Negative) 12/18/23 12/18/23 12/18/23 Range/Units 09:32 09:32 09:32 WBC (4.8-10.8) X10*3/uL RBC (4.20-5.50) X10*6/uL Hgb (12.0-16.0) g/dl Hct (37.0-47.0) % MCV (80.0-98.0) fL MCH (27.0-33.0) pg MCHC (31.0-35.0) g/dl RDW (11.0-16.0) % Plt Count (160-400) X10*3/uL MPV (9.4-12.3) fL Immature Gran % (Auto) (0.0-0.4) % Neut % (Auto) (45-73) % Lymph % (Auto) (20-40) % [place] % (Auto) (2-11) % Eos % (Auto) (0-4) % Baso % (Auto) (0-2) % Lymph # (Auto) (1.2-4.9) X10*3/uL [place] # (Auto) (0.1-1.2) X10*3/uL Eos # (Auto) (0.0-0.4) X10*3/uL Baso # (Auto) (0.0-0.2) X10*3/uL Abs Immat Gran (auto) (0.00-0.03) X10*3/uL Absolute Neuts (auto) (2.0-8.3) x10*3/uL Absolute Nucleated RBC (0.0-0.012) X10*3/uL Nucleated RBC % (auto) (0.0-0.2) /100WBC Hold Purple Top Hold Blue Top Sodium (135-145) mmol/L Potassium (3.3-5.1) mmol/L Chloride (96-108) mmol/L Carbon Dioxide (22-29) mmol/L Anion Gap (12-20) BUN (9-16) mg/dL Creatinine (0.5-1.4) mg/dL Estim Creat Clear Calc Estimated GFR Random Glucose (60-115) mg/dL Calcium (8.4-10.2) mg/dL Magnesium (1.6-2.6) mg/dL Total Bilirubin (0.0-1.0) mg/dL Direct Bilirubin (0.0-0.5) mg/dL AST (5-31) U/L ALT (0-31) U/L Alkaline Phosphatase (39-117) U/L Total Protein Cancelled (6.5-8.0) g/dL Albumin 3.4 L Cancelled (3.5-5.0) g/dL Lipase 24 Cancelled (8-78) U/L Beta HCG, Quant 9178 mIU/mL Urine Color Urine Appearance Urine pH (5.0-9.0) Ur Specific [place] (1.005-1.025) Urine Protein (Neg-Trace) mg/dL Urine Glucose (UA) (Negative) mg/dL Urine Ketones (Negative) mg/dL Urine Blood (Negative) Urine Nitrite (Negative) Ur Leukocyte Esterase (Negative) 12/18/23 Range/Units 10:34 WBC (4.8-10.8) X10*3/uL RBC (4.20-5.50) X10*6/uL Hgb (12.0-16.0) g/dl Hct (37.0-47.0) % MCV (80.0-98.0) fL MCH (27.0-33.0) pg MCHC (31.0-35.0) g/dl RDW (11.0-16.0) % Plt Count (160-400) X10*3/uL MPV (9.4-12.3) fL Immature Gran % (Auto) (0.0-0.4) % Neut % (Auto) (45-73) % Lymph % (Auto) (20-40) % [place] % (Auto) (2-11) % Eos % (Auto) (0-4) % Baso % (Auto) (0-2) % Lymph # (Auto) (1.2-4.9) X10*3/uL [place] # (Auto) (0.1-1.2) X10*3/uL Eos # (Auto) (0.0-0.4) X10*3/uL Baso # (Auto) (0.0-0.2) X10*3/uL Abs Immat Gran (auto) (0.00-0.03) X10*3/uL Absolute Neuts (auto) (2.0-8.3) x10*3/uL Absolute Nucleated RBC (0.0-0.012) X10*3/uL Nucleated RBC % (auto) (0.0-0.2) /100WBC Hold Purple Top Hold Blue Top Sodium (135-145) mmol/L Potassium (3.3-5.1) mmol/L Chloride (96-108) mmol/L Carbon Dioxide (22-29) mmol/L Anion Gap (12-20) BUN (9-16) mg/dL Creatinine (0.5-1.4) mg/dL Estim Creat Clear Calc Estimated GFR Random Glucose (60-115) mg/dL Calcium (8.4-10.2) mg/dL Magnesium (1.6-2.6) mg/dL Total Bilirubin (0.0-1.0) mg/dL Direct Bilirubin (0.0-0.5) mg/dL AST (5-31) U/L ALT (0-31) U/L Alkaline Phosphatase (39-117) U/L Total Protein (6.5-8.0) g/dL Albumin (3.5-5.0) g/dL Lipase (8-78) U/L Beta HCG, Quant mIU/mL Urine Color Yellow Urine Appearance Clear Urine pH 7.0 (5.0-9.0) Ur Specific [place] 1.020 (1.005-1.025) Urine Protein Negative (Neg-Trace) mg/dL Urine Glucose (UA) Negative (Negative) mg/dL Urine Ketones Negative (Negative) mg/dL Urine Blood Negative (Negative) Urine Nitrite Negative (Negative) Ur Leukocyte Esterase Negative (Negative) Independent Interpretation I performed an independent interpretation of an: Ultrasound Radiology Impression Discussion of test interpretation with radiology: I have reviewed the radiologist's reading. External Record Review External record reviewed: Inpatient record, Office record, Outpatient record, Prior outpatient labs, Prior outpatient radiology, Primary care record and Outside ED record Tests considered The following testing was considered but not selected: As above Prescription Management I considered prescription management with: Pain Medication and Other Chronic Conditions Patient?s care impacted by: Other Social Determinants Patient?s care significantly limited by Social Determinants of Health including: Inadequate housing, Low income, Problems related to primary support group, Unemployment, Problems related to employment and Other Social Determinant of Health Discharge Plan Discharge Clinical Impression: Abdominal pain during in second trimester, Headache Patient Disposition: Still a Patient Prescriptions: No Action cephalexin 500 mg tablet 500 mg PO TID 14 Days Qty: 42 0RF prenat.vits,jaime,mcp-rmhu-qafkh Tablet 1 tab PO DAILY Qty: 30 2RF Vitamin 27 mg iron- 800 mcg tablet 1 tab PO DAILY Qty: 30 0RF acetaminophen [Tylenol] 325 mg capsule 325 mg PO QID PRN (Reason: pain) 7 Days Qty: 28 0RF pyridoxine (vitamin B6) 10 mg tablet 10 mg PO QID 5 Days Qty: 20 0RF cimetidine 800 mg tablet 800 mg PO BID Qty: 60 0RF Rx Instructions: administer with meals ondansetron 4 mg tablet,disintegrating 4 mg PO Q6-8H PRN (Reason: nausea and vomiting) Qty: 30 0RF Print Language: [place] Creole
[2023-12-18 10:14] LABS: MANUAL DIFF FLAG NO
[2023-12-18 10:19] LABS: Basophils Percent Auto 0.1 % (0-2); Eosinophils Percent Auto 0.4 % (0-4); Hematocrit 30.7 % (37.0-47.0); Hemoglobin 9.9 g/dl (12.0-16.0); Imm Gran Abs Auto 0.04 X10*3/uL (0.00-0.03); Imm Gran Pct Auto 0.6 % (0.0-0.4); Lymphocytes Percent Auto 29.9 % (20-40); Mean Corpuscular HGB Conc 32.2 g/dl (31.0-35.0); Mean Corpuscular Hemoglobin 24.6 pg (27.0-33.0); Mean Corpuscular Volume 76.2 fL (80.0-98.0); Mean Platelet Volume 11.8 fL (9.4-12.3); Monocytes Absolute Auto 0.5 X10*3/uL (0.1-1.2); Monocytes Percent Auto 6.7 % (2-11); Neutrophils Absolute Auto 4.3 x10*3/uL (2.0-8.3); Neutrophils Percent Auto 62.3 % (45-73); Platelet Count 202 X10*3/uL (160-400); Red Blood Count 4.03 X10*6/uL (4.20-5.50); Red Cell Distribution Width 15.1 % (11.0-16.0); White Blood Count 6.8 X10*3/uL (4.8-10.8)
[2023-12-18 10:38] LABS: Anion Gap 11 (12-20)
[2023-12-18] MEDS: Acetaminophen 325 MG TABLET 650 MG PO (10:39)
[2023-12-18 10:43] LABS: Alanine Aminotransferase 10 U/L (0-31); Albumin Level 3.4 g/dL (3.5-5.0); Alkaline Phosphatase 53 U/L (39-117); Aspartate Amino Transferase 16 U/L (5-31); Bilirubin Direct < 0.2 mg/dL (0.0-0.5); Bilirubin Total 0.2 mg/dL (0.0-1.0); Blood Urea Nitrogen 7 mg/dL (9-16); Calcium 9.1 mg/dL (8.4-10.2); Carbon Dioxide 19 mmol/L (22-29); Chloride 110 mmol/L (96-108); Creatinine Clr Calc Pharmacy 155.8; Estimated Glomerular Filt Rate > 60; Glucose Random 87 mg/dL (60-115); Lipase 24 U/L (8-78); Magnesium 1.7 mg/dL (1.6-2.6); Sodium 136 mmol/L (135-145); Total Protein 6.5 g/dL (6.5-8.0)
[2023-12-18 10:51] LABS: Appearance Urine Clear; Color Urine Yellow; Glucose Urine UA Negative (Negative); Leukocyte Esterase Urine Negative (Negative); Nitrite Urine Negative (Negative); Urine Blood Negative (Negative); Urine Ketones Negative (Negative); Urine Protein Negative (Neg-Trace)
[2023-12-18 13:27] VITALS: BP 94/53; PULSE 82; RESP 16; TEMP 36.7; O2SAT 100
[2023-12-18 16:36] VITALS: BP 102/63; PULSE 87; RESP 16; TEMP 36.9; O2SAT 100
[2023-12-18 18:01] VITALS: BP 102/63; PULSE 87; RESP 16; TEMP 36.9; O2SAT 100
[2023-12-19 01:12] LABS: CT PCR NOT DETECTED (Not Detect.); NG PCR NOT DETECTED (Not Detect.)
[2023-12-19 15:55] LABS: Bacterial Vaginosis PCR NEGATIVE (Negative); Candida Group PCR NOT DETECTED (Not Detect); Candida glab krusei PCR NOT DETECTED (Not Detect); Trichomonas vaginalis PCR NOT DETECTED (Not Detect)
== END 2023-12-18 18:02 | disposition home or self-care (01) ==
PROVIDERS: Physician Assistant; Emergency Provider Emergency Medicine Emergency Medical Services; PCP Nurse Practitioner Family
DX: O99.012 Anemia complicating pregnancy, second trimester (principal); R51.9 Headache, unspecified; M54.2 Cervicalgia; R11.0 Nausea; M54.50 Low back pain, unspecified; Z79.899 Other long term (current) drug therapy; Z3A.24 24 weeks gestation of pregnancy
CPT/HCPCS: 0352U; 36415; 76775; 76815; 80048; 80076; 81003; 83690; 83735; 84702; 85025; 87491; 87591; 99283; 99284

== ENCOUNTER 2024-07-21 10:13 | Outpatient (REF) | payer MEDICAID, SELFPAY ==
[2024-07-21 11:41] LABS: MANUAL DIFF FLAG NO
[2024-07-21 11:50] LABS: Basophils Percent Auto 0.5 % (0-2); Eosinophils Percent Auto 0.9 % (0-4); Hematocrit 38.1 % (37.0-47.0); Hemoglobin 11.6 g/dl (12.0-16.0); Imm Gran Abs Auto 0.01 X10*3/uL (0.00-0.03); Imm Gran Pct Auto 0.2 % (0.0-0.4); Lymphocytes Absolute Auto 2.1 X10*3/uL (1.2-4.9); Lymphocytes Percent Auto 47.4 % (20-40); Mean Corpuscular HGB Conc 30.4 g/dl (31.0-35.0); Mean Corpuscular Volume 78.9 fL (80.0-98.0); Monocytes Absolute Auto 0.3 X10*3/uL (0.1-1.2); Monocytes Percent Auto 6.8 % (2-11); Neutrophils Percent Auto 44.2 % (45-73); Platelet Count 250 X10*3/uL (160-400); Red Blood Count 4.83 X10*6/uL (4.20-5.50); Red Cell Distribution Width 14.6 % (11.0-16.0); White Blood Count 4.4 X10*3/uL (4.8-10.8)
--- OUTSIDE RECORDS SUMMARY | 2024-07-21 12:02 | XMS_ITS | Encounter Summary ---
Author Organization [employer] Address [address] [facility] [address] [place] [address] Care Team Providers Care Sales And Marketing Administrator Name Role Phone Ashley Quan KAILASH Primary Care Provider [phone] Reason for Visit * Reason Comments Med Change Request Encounter Details Date Type Department Care Team ([facility] st Contact Info) Description 07/21/2024 Refill [facility] [address] [place], [place] [id number] Bibiana Guzman DO [address] [place], [place] [phone] Social History Tobacco Use Types Packs/Day Years Used Date Smoking Tobacco: Never Smokeless Tobacco: Never Alcohol Use Standard Drinks/Week Comments Not Currently 0 (1 standard drink = 0.6 oz pur e alcohol) Depression Answer Date Recorded Patient Health Questionnaire-9 Score 0 07/25/2022 Housing Stability Answer Date Recorded What is your housing situation today? I have jeffery pepe 11/24/[address] you li ve. Do you have problems with any of the following? None of the above 11/24/2023 Food Insecurity Answer Date Recorded Within the past 12 months, y ou worried that your food would run out before you got money to buy more: Never True 11/24/2023 Within the past 12 months,th e food you bought just didn't last and you didn't have enough money to get more: Never True 09/2023 Transportation Answer Date Recorded In the past 12 months, has l ack of transportation kept you from medical appts, meetings, work or from getting things needed for daily living? Yes, it has kept me from medical appointments or getting medications. 11/24/2023 Utilities Answer Date Recorded In the past 12 months, has t he electric, gas, oil or water company threatened to shut off services in your home? No 11/24/2023 Depression Answer Date Recorded Patient Health Questionnaire-2 Score 0 07/25/2022 Internet Access Answer Date Recorded Internet Access Q1 Yes 11/24/2023 Internet Access Q2 Not on file 11/24/2023 Comments No Sex and Gender Information Value Date Recorded Sex Assigned at Female 01/15/2022 2:46 PM EST Legal Sex Female 2:46 PM EST Gender Identity Female 01/15/2022 2:46 PM EST Sexual Orientation Straight 01/15/2022 2: 46 PM EST documented as of this encounter Plan of Treatment Upcoming Encounters Date Type Department Care Team (Late st Contact Info) Description 09/14/2024 10:00 AM EDT Office Visit [facility] [address] [place] [address] Ashley Quan NP [address] [place] [address] documented as of this encounter Visit Diagnoses Not on filedocumented in this encounter Additional Health Concerns Assessment Noted Time PHQ-9 Depression Total Score: 0 07/26/19 23 1:13 PM EDT documented as of this encounter Care Teams Sales And Marketing Administrator Relationship Specialty Start Date End Date Ashley Quan NP [address] [place] [address] PCP - General Family Medicine 10/20/23 Elicia Benitez Geophysical Engineer 11/25/23 documented as of this encounter
[2024-07-21 12:09] LABS: Estimated Average Glucose 114 mg/dL; Hemoglobin A1c % 5.6 % (<6.0)
[2024-07-21 12:44] LABS: Folate 11.8 ng/mL (> or = 4.0); Vitamin B12 695 pg/mL (200-900)
[2024-07-21 12:50] LABS: Albumin Level 4.4 g/dL (3.5-5.0); Alkaline Phosphatase 86 U/L (39-117); Anion Gap 9 (12-20); Aspartate Amino Transferase 32 U/L (5-31); Bilirubin Direct 0.2 mg/dL (0.0-0.5); Bilirubin Total 0.4 mg/dL (0.0-1.0); Blood Urea Nitrogen 8 mg/dL (9-16); Calcium 9.7 mg/dL (8.4-10.2); Carbon Dioxide 27 mmol/L (22-29); Chloride 109 mmol/L (96-108); Cholesterol 160 mg/dL (<200); Estimated Glomerular Filt Rate > 60; Ferritin 43 ng/mL (10-122); Glucose Random 95 mg/dL (60-115); HDL Cholesterol 46 mg/dL (>40); Iron 74 mcg/dL (30-160); LDL Cholesterol Calculated 102 mg/dL (<100); Percent Iron Saturation 25 % (15-50); Potassium 4.6 mmol/L (3.3-5.1); Sodium 140 mmol/L (135-145); Thyroid Stimulating Hormone 1.08 uIU/mL (0.32-4.0); Total Iron Binding Capacity 292 mcg/dL (228-428); Total Protein 7.3 g/dL (6.5-8.0); Triglycerides 60 mg/dL (<150); Unsaturated Iron Binding 218 ug/dL
[2024-07-21 13:13] LABS: Alanine Aminotransferase 33 U/L (0-31)
== END 2024-07-21 10:14 | disposition home or self-care (01) ==
LOC: HO.HHCL 10:13
PROVIDERS: Visit Provider Family Medicine
DX: D64.9 Anemia, unspecified (principal); G89.29 Other chronic pain; R51.9 Headache, unspecified
CPT/HCPCS: 36415; 80048; 80061; 80076; 82306; 82607; 82728; 82746; 83036; 83540; 84439; 84443; 85025

== ENCOUNTER 2024-09-05 09:29 | Outpatient (REF) | payer MEDICAID, SELFPAY ==
--- OUTSIDE RECORDS SUMMARY | 2024-09-05 09:20 | XMS_ITS | Encounter Summary ---
Author Organization [employer] Address [address] [facility] 7[address] [place] [address] Care Team Providers Care Forming Yardage Control Operator Name Role Phone Ashley Quan KAILASH Primary Care Provider [phone] Reason for Visit * Reason Comments Headache Encounter Details Date Type Department Care Team ([facility] st Contact Info) Description 09/05/2024 9:20 AM EDT Office Visit [facility] [address] [place] [address] Acute non-recurrent frontal sinusitis (Primary Dx); Dietary counseling; Exercise counseling; Class 3 severe obesity due to excess calories without serious comorbidity with body mass index (BMI) of 40.0 to 44.9 in adult Social History Tobacco Use Types Packs/Day Years Used Date Smoking Tobacco: Never Smokeless Tobacco: Never Tobacco Cessation:Counseling Given: Not Answered Alcohol Use Standard Drinks/Week Comments Not Currently [...] Access Q2 Not on file 11/24/2023 Comments Unknown Intention Date Recorded No desire to become (finding) 0 09/05/2024 Sex and Gender Information Value Date Recorded Sex Assigned at Female 01/15/2022 2:46 PM EST Legal Sex Female 2:46 PM EST Gender Identity Female 01/15/2022 2:46 PM EST Sexual Orientation Straight 01/15/2022 2: 46 PM EST documented as of this encounter Last Filed Vital Signs Vital Sign Reading Time Taken Comments Blood Pressure 125/78 09/05/2024 8:46 AM EDT Pulse 75 09/05/2024 8:46 AM EDT Temperature 36.7 C (98 F) 09/05/2024 8:46 AM EDT Respiratory Rate 16 09/05/2024 8:46 AM EDT Oxygen Saturation - - Inhaled Oxygen Concentration - - Weight 106 kg (233 lb 3.2 oz) 09/05/2024 8:46 AM EDT Height 160 cm (5' 3 ) 09/05/2024 8:46 AM EDT Body Mass Index 41.31 09/05/2024 8:46 AM EDT documented in this encounter Miscellaneous Notes * Patient Education Note - Meagan Ferguson MD - 09/05/2024 1:20 PM EDT Images from the original note were not included. Patient Education Table of Contents Epi Campbell (Sinus Infection, Adult) To view videos and all your education online visit, [email or web address] or scan this QR code with your smartphone. Access to this content will in one year. Epi Campbell Sinus Infection, Adult Yon enfebecky de la torre sinpola, ki rele soy sinizit, se anflamasyon sinis ou yo. Sinis yo se espas kre nanzo ki toutotou figi ou. Sinis ou yo jamel: Toutotou zye ou. Nan mitan fwon ou. D?y?? nen ou. Nan zo b?? figi ou. N?malman fl?m nan koule sot nan sinis ou yo. L?? tisi nazal ou drea anflame oswa anfle, fl?m nan kapab drea trap oswa bloke. Sa p?m?t bakteri, viris, ak chanpiyon yo devlope, ki lak?z enfeksyon. Pif?? enfeksyon sinis yo koze pa yon viris. Yon enfeksyon nan sinis ka devlope byen vit. Li kapab dire jiska 4 alfred?n (egi) oswa plis pase 12 alfred?n (kwonik). Yon enfeksyon nan sinis devlope souvan apre yon rim. Kathleen ki lak?z li? Moun gen pwobl?m sa a ak?z nenp?t bagay ki kreye anflamasyon nan sinis yo oswa ki anpeche fl?m koule. Sa gen kenneth: Al?ji. Opresyon. Enfeksyon ak?z bakteri oswa viris yo. Def?masyon oswa blokaj nan nen oswa sinis ou yo. Kwasans an?mal nan nen (polip nazal). Polyan, tankou sibstans chimik oswa iritan ki nan l?? a. Enfeksyon ak?z chanpiyon. Sa ra. Kathleen ki ogmante risk la? Ou ka gen plis chans adonay drea devlope pwobl?m sa a si ou: Gen yon sist?m defans k?? (sist?m iminit??) ki f?b. F?? anpil natasyon oswa plonje. Itilize tw?p espre nazal. Fimen. Kathleen siy oswa sent?m yo ye? Sent?m prensipal pwobl?m sa a se doul?? ak yon sansasyon presyon toutotou sinis ki afekte yo. Men k?k nan l?t sent?m yo: Nen bouche oswa konjesyon ki f?? li difisil adonay w respire nan nen ou. Ekoulman ep?? j?n oswa yon noble v?t nan nen ou. Sansibilite, anflamasyon ak chal?? krysta sinis ki afekte yo. Yon tous ki ka drea pi mal lannwit. Sans gou ak sans od?? diminye. Fl?m anplis ki anpile nan g?j oswa nan d?y?? nen an (ekoulman p?snazal) ki lak?z malg?j ak mov?z al?n. Epwizman (fatig). Lafy?v. Kijan yo f?? dyagnostik li? Yo dyagnostike pwobl?m sa a baze krysta: Sent?m ou yo. Istwa medikal ou. Yon egzamen fizik. T?s adonay konnen si pwobl?m ou an egi oswa kwonik. Sa ka gen kenneth: ? Tcheke nen ou adonay w?? si gen polip nazal. ? S?vi av?k yon apar?y ki gen yon limy?? (andosk?p) adonay moira sinis ou yo. ? T?s adonay al?ji oswa bakteri. ? T?s imajri, tankou MRI, oswa eskanografi CT. Nan ka ki ra, yo ka f?? yon byopsi zo adonay elimine kalite maladi sinis fonjik ki pi grav. Kijan yo trete li? Tretman adonay yon enfeksyon nan sinis depann de k?z la ak si pwobl?m ou kwonik oswa egi. Si se ak?z yon viris, sent?m ou yo ta dwe gianna poukont yo nan 10 debbie. Ou ka resevdemario mejiascarlett adonay soulaje sent?m ou yo. Yo gen kenneth: ? [facility] torrie ratresi pasaj nazal ki anfle (dekonjesyonan). ? Yon espre ki soulaje anflamasyon nan twou nen yo (k?tikostewoyid entranazal topik). ? Rens ki lauri elimine fl?m ep?? nan nen ou (solisyon salin nazal). ? Medikaman ki trete al?ji (anti-istamin). ? Medikaman elizabeth preskripsyon adonay doul?. Si se ak?z yon bakteri, pwofesyon?l swen sante w ka rek?mande adonay rete tann adonay w?? si sent?m ou yoap amelyore. Pif?? enfeksyon bakteri yo ap amelyore elizabeth medikaman antibyotik. Ou ka resevwa antibyotik si ou gen: ? Yon enfeksyon grav. ? Yon sist?m iminit?? ki f?b. Si se ak?z pasaj nazal ki etwat oswa polip nazal, operasyon gendwa neses?. Swiv enstriksyon sa yo lakay ou: Medikaman Pran, itilize oswa aplike medikaman elizabeth preskripsyon ak medikaman krysta preskripsyon s?lman noble pwofesyon?l swen sante w di ou. Sa ka kons?ne espre nazal soy. Si yo te preskri w yon medikaman antibyotik, pran jay noble pwofesyon?l swen sante w di ou. Piga sispann pran antibyotik la menmsi ou k?manse víctor ou f?? mye. Idrate ak imidifye Bw?? ase likid adonay kenbe pipi w j?n pal. Si ou rete idrate sa ap lauri f?? fl?m ou drea fen. Itilize yon imidifikat?? ki bay vap?? fr?t adonay kenbe nivo imidite nan clayton ou anwo 50%. Rale vap?? pandan 10?15 minit, 3?4 fwa pa debbie, oswa noble pwofesyon?l swen sante w di ou. Ou kapab f?? sa nan twal?t la pandan dlo cho a ap koule. Limite kantite healy ou ekspoze nan l?? fr?t oswa s?k. Repo Repoze ou tout kantite healy ou kapab. D?mi av?k t?t ou monte (leve). Asire ou d?mi ase chak swa. Enstriksyon jeneral Pase yon s?vy?t ty?d ak imid nan figi ou 3?4 fwa pa debbie, oswa noble pwofesyon?l swen sante w di ou. Sa ap lauri adonay mal?z la. S?vi ak lavaj salin nazal pandan kantite fwa pwofesyon?l swen sante w di ou. Lave men ou souvan av?k flavia ak dlo adonay redui ekspozisyon ou nan j?m yo. Si ou pa jwenn flavia ak dlo, itilize dezenfektan adonay men. Piga fimen. Evite rete b?kote moun k ap fimen (lafimen segond??). Gianna nan tout vizit swivi yo. Sa enp?healy. Kontakte yon pwofesyon?l swen sante si: Ou gen yon lafy?v. Sent?m ou yo drea pi grav. Sent?m ou yo pa michelle nan 10 debbie. Ch?compa ?d touswit si: Ou gen yon malt?t ki grav. Ou kontinye ap vomi. Ou gen doul?? oswa anflamasyon grav toutotou figi oswa zye ou. Ou gen pwobl?m vizyon. Ou drea gen konfizyon. Bunny ou r?d. Ou gen pwobl?m adonay respire. Sent?m sa yo kapab yon ijans. Ch?compa ?d touswit. Rele 911. Piga rete tann adonay w?? si sent?m yo pral dispar?t. Piga kondi adonay w mennen t?t ou lopital. Rezime Yon enfeksyon nan sinis se doul?? ak anflamasyon nan sinis ou yo. Sinis yo se espas kre nan zo ki toutotou figi ou. Pwobl?m sa a se ak?z tisi nan nen ki drea anflame oswa anfle. Anflamasyon an trap oswa bloke ekoulman fl?m yo. Sa p?m?t bakteri, viris, ak chanpiyon yo devlope, ki lak?z enfeksyon. Si yo te preskri w yon medikaman antibyotik, pran li noble pwofesyon?l swen sante w di ou. Piga sispann pran antibyotik la menmsi ou k?manse víctor ou f?? mye. Gianna nan tout vizit swivi yo. Sa enp?healy. Enf?masyon sa yo pa la adonay ranplase kons?y pwofesyon?l swen sante ou ba ou. Sonje adonay pale krysta nenp?t kesyon ou genyen av?k pwofesyon?l swen sante ou. Document Released: 2012-08-03 Document Updated: 2022-01-21 Document Reviewed: 2022-01-21 [employer] Patient Education ? 2024 [employer] * Assessment & Plan Note - Meagan Ferguson MD - 09/05/2024 9:29 AM EDT Associated Problem(s): Acute non-recurrent frontal sinusitis Most likely viral, she is fever free at this time. Rest (sleep at least 8 hours a night). Hydrate with plenty of water (avoid caffeine and alcohol). Use saline nose drops + Flonase take Acetaminophen (Tylenol??)/Ibuprofen as needed to reduce fever, headache, body aches or discomfort Gargle with salt water and use throat sprays/lozenges for throat pain. Use heated, humidified air. If you do not have a humidifier, take hot showers. Cover coughs and sneezes using the crook of your elbow. If you have a fever, stay home and away from others (self isolation) until fever-free for 72 hours (temperature should be less than 100??F without medication). documented in this encounter Plan of Treatment Upcoming Encounters Date Type Department Care Team (Late st Contact Info) Description 09/14/2024 10:00 AM EDT Office Visit [facility] [address] [place] [address] Ashley Quan NP [address] [place] [address] Scheduled Orders Name Type Priority Associated Diagnoses Orde r Schedule Basic Metabolic Panel Lab Routine Class 3 severe obesity due to excess calories without serious comorbidity with body mass index (BMI) of 40.0 to 44.9 in adult Expected: 09/05/2024 (Approximate), Expires: 09/05/2025 Hemoglobin A1c Lab Routine Class 3 severe obesity due to excess calories without serious comorbidity with body mass index (BMI) of 40.0 to 44.9 in adult Expected: 09/05/2024 (Approximate), Expires: 09/05/2025 TSH with Reflex to Free T4 Lab Routine Class 3 severe obesity due to excess calories without serious comorbidity with body mass index (BMI) of 40.0 to 44.9 in adult Expected: 09/05/2024 (Approximate), Expires: 09/05/2025 documented as of this encounter Visit Diagnoses Diagnosis Acute non-recurrent frontal sinusitis- Primary Dietary counseling Dietary surveillance and counseling Exercise counseling Class 3 severe obesity due to excess calories without serious comorbidity with body mass index (BMI) of 40.0 to 44.9 in adult documented in this encounter Additional Health Concerns Assessment Noted Time PHQ-9 Depression Total Score: 0 07/26/19 23 1:13 PM EDT documented as of this encounter Care Teams Forming Yardage Control Operator Relationship Specialty Start Date End Date Ashley Quan NP [address] [place] [address] PCP - General Family Medicine 10/20/23 Elicia Benitez Superintendent Service 11/25/23 documented as of this encounter
[2024-09-05 11:32] LABS: Hemoglobin A1C 126.5211 umol/L; Total Hemoglobin (HGBA1C) 3262.2335 umol/L
[2024-09-05 11:51] LABS: Anion Gap 11 (12-20); Blood Urea Nitrogen 10 mg/dL (9-16); Calcium 9.1 mg/dL (8.4-10.2); Carbon Dioxide 25 mmol/L (22-29); Chloride 109 mmol/L (96-108); Estimated Glomerular Filt Rate > 60; Potassium 4.3 mmol/L (3.3-5.1); Sodium 141 mmol/L (135-145)
== END 2024-09-05 09:30 | disposition home or self-care (01) ==
LOC: HO.HHCL 09:29
PROVIDERS: Internal Medicine; PCP Internal Medicine; Visit Provider Internal Medicine
DX: E66.813 Obesity, class 3 (principal); Z68.41 Body mass index [BMI] 40.0-44.9, adult
CPT/HCPCS: 36415; 80048; 83036; 84443

== ENCOUNTER 2024-11-18 19:31 | Outpatient (REF) | payer MEDICAID, SELFPAY ==
--- OUTSIDE RECORDS SUMMARY | 2024-11-18 13:40 | XMS_ITS | Encounter Summary ---
Author Organization [employer] Address [address] [facility] [address] [place] [address] Care Team Providers Care Eyelet Riveter Name Role Phone Ashley Quan KAILASH Primary Care Provider [phone] Reason for Visit * Reason Comments Cough Sore Throat Encounter Details Date Type Department Care Team (Latest Contact Info) Description 11/18/2024 1:40 PM EDT Office Visit [facility] [address] [place] [address] Anna Giles ANP [address] [place] [address] Sore throat (Primary Dx); Laryngitis; Acute nonintractable headache, unspecified headache type Social History Tobacco Use Types Packs/Day Years Used Date Smoking Tobacco: Never Smokeless Tobacco: Never Alcohol Use Standard Drinks/Week Comments Not Currently 0 (1 standard drink = 0.6 oz pur e alcohol) Alcohol Answer Date Recorded How often do you have a drink containing alcohol ? 0 09/14/2024 How many drinks containing a lcohol do you have on a typical day when you are drinking? 0 09/14/2024 How often do you have six or more drinks on one occasion? 0 09/14/2024 Depression Answer Date Recorded Patient Health Questionnaire-9 Score 3 09/14/2024 Patient Health Questionnaire-9 Score 3 09/14/2024 Last PHQ-9: Questionnaire Data Not on file 0 09/14/2024 Housing Stability Answer Date Recorded What is your housing situation today? I have jeffery pepe 09/14/[address] you li ve. Do you have problems with any of the following? Pests such as bugs, ants, or mice 09/14/2024 Food Insecurity Answer Date Recorded Within the [...] from getting things needed for daily living? No 09/14/2024 Utilities Answer Date Recorded In the past 12 months, has t he electric, gas, oil or water company threatened to shut off services in your home? No 11/24/2023 Depression Answer Date Recorded Patient Health Questionnaire-2 Score 0 09/14/2024 Internet Access Answer Date Recorded Internet Access [...] Sign Reading Time Taken Comments Blood Pressure 106/63 11/18/2024 1:47 PM EDT Pulse 85 11/18/2024 1:47 PM EDT Temperature 36.8 C (98.2 F) 11/18/2024 1:47 PM EDT Respiratory Rate 18 11/18/2024 1:47 PM EDT Oxygen Saturation 99% 11/18/2024 1:47 PM EDT Inhaled Oxygen Concentration - - Weight 105 kg (232 lb) 11/18/2024 1:47 PM EDT Height - - Body Mass Index 41.1 10/14/2024 10:26 AM EDT documented in this encounter Progress Notes * SOPHIE Rocha - 11/18/2024 1:40 PM EDT Talisha Worrell is 29 y.o. patient here today for sick visit. HPI PMH incl preDM, h/o DVT in Here today w/ sore throat, VALLADARES, subjective fever x 2d. BCM nexplanon Seen here for sinusitis in August Lab Results Component Value Date HGBA1C 5.7 09/05/2024 Here today for evaluation of sore throat for last few days. Difficulty swallowing d/t pain but can swallow and is taking in liquids and managing own saliva w/o issue. Took APAP yesterday w/o improvement. +laryngitis. No difficulty breathing. No one in house (baby and ) with similar symptoms. Elicia certified medical biller utilized for [facility] Creole interpretation. Review of Systems Constitutional: Positive for fever. Negative for chills. HENT: Positive for sore throat. Respiratory: Negative for cough and shortness of breath. Neurological: Positive for headaches. Negative for weakness. Patient Active Problem List Diagnosis Non-Tongan speaking patient Anemia H/O emergency section History of deep vein thrombosis during Acute non-recurrent frontal sinusitis Elevated blood pressure reading Class 2 obesity Severe obesity (CMS/HCC) ([facility]) Objective BP 106/63 (BP Location: Right arm, Patient Position: Sitting, BP Cuff Size: Adult) Pulse 85 Temp 98.2 ??F (36.8 ??C) (Temporal) Resp 18 Wt 232 lb (105 kg) SpO2 99% BMI 41.10 kg/m?? Physical Exam Vitals reviewed. Constitutional: Appearance: Normal appearance. She is obese. HENT: Head: Normocephalic and atraumatic. Comments: Hoarse voice Right Ear: Tympanic membrane, ear canal and external ear normal. Left Ear: Tympanic membrane, ear canal and external ear normal. Mouth/Throat: Mouth: Mucous membranes are moist. Pharynx: No oropharyngeal exudate or posterior oropharyngeal erythema. Eyes: General: No scleral icterus. Extraocular Movements: Extraocular movements intact. Pupils: Pupils are equal, round, and reactive to light. Cardiovascular: Rate and Rhythm: Normal rate and regular rhythm. Pulmonary: Effort: Pulmonary effort is normal. No respiratory distress. Breath sounds: Normal breath sounds. No stridor. No wheezing or rhonchi. Musculoskeletal: Right lower leg: No edema. Left lower leg: No edema. Lymphadenopathy: Cervical: No cervical adenopathy. Skin: General: Skin is warm and dry. Neurological: Mental Status: She is alert and oriented to person, place, and time. Psychiatric: Mood and Affect: Mood normal. Behavior: Behavior normal. Diagnoses and all orders for this visit: Sore throat Afebrile. Rapid testing negative for COVID and strep. Lungs CTAB. No stridor. HEENT exam difficult to visualize lower oropharynx completely even w/ tongue depressor, but patent airway and 1+ tonsils, no exudate. Minimal erythema. No cough to suggest croup. No exudate visible. Ddx does incl tonsillar abscess but voice is clear but hoarse, not muffled, pt vitals are wnl, handling own secretions. Rapid testing here negative for flu, COVID and strep. Will send out throat culture. Advised pt carefully of ED precautions incl any worsening pain, inability to swallow incl own spit, further voice change, must go to ED. She understands. Recommend APAP + ibuprofen TID for pain/swelling, push fluids, honey, tea. Call clinic if symptoms are not improving. Go to ED if symptoms worsening. - Influenza A (ID NOW Rapid Molecular) - Influenza B (ID NOW Rapid Molecular) - POCT Rapid COVID Ag - POCT rapid strep A manually resulted - throat culture documented in this encounter Plan of Treatment Upcoming Encounters Date Type Department Care Team (Late st Contact Info) Description 11/23/2024 3:15 PM EDT Office Visit [facility] [address] [place] [address] Ashley Quan NP [address] [place] [address] 01/05/2025 3:15 PM EST Office Visit [facility] [address] [place] [address] TarMaria Del Rosario martinez, OD [address] [place] [address] 03/29/2025 10:00 AM EST Office Visit [facility] [address] [place] [address] Lyssa Hernandez [address] [place] [address] Scheduled Orders Name Type Priority Associated Diagnoses Orde r Schedule Culture, Throat Microbiology Routine Sore throat Ordered: 11/18/2024 documented as of this encounter Procedures Procedure Name Priority Date/Time Associated Diagnosis Comments POCT INFLUENZA B (ID NOW RAPID MOLECULAR) Routine 11/18/2024 2:09 PM EDT Sore throat POCT INFLUENZA A (ID NOW RAPID MOLECULAR) Routine 11/18/2024 2:09 PM EDT Sore throat POCT RAPID COVID ANTIGEN Routine 11/18/2024 1:54 PM EDT Sore throat POCT RAPID STREP A Routine 11/18/2024 1: 53 PM EDT Sore throat documented in this encounter Results * Influenza B (ID NOW Rapid Molecular) (11/18/2024 2:09 PM EDT) [facility] Influenza B Negative Negative, Indeterminate [facility] Swab 11/18/2024 2:09 PM EDT Anna Giles ANP POINT OF CARE TEST ENTER/EDIT OR DERABLES Final Result Performing Organization Address [facility]/ZIP Co de Phone Number [facility] [address] [place] [phone] * Influenza A (ID NOW Rapid Molecular) (11/18/2024 2:09 PM EDT) [facility] Influenza A Negative Negative, Indeterminate [facility] Swab 11/18/2024 2:09 PM EDT Anna Giles [facility] POINT OF CARE TEST ENTER/EDIT OR DERABLES Final Result Performing Organization Address [facility]/ZIP Co de Phone Number [facility] [address] [place] [phone] * POCT Rapid COVID Ag (11/18/2024 1:54 PM EDT) [facility] Rapid COVID Ag Negative Swab 11/18/2024 1:54 PM EDT us Anna Giles ANP POINT OF CARE TEST ENTER/EDIT OR DERABLES Final Result * POCT rapid strep A manually resulted (11/18/2024 1:53 PM EDT) Rapid Strep A Screen Negative Negative, None Detected Swab 11/18/2024 1:53 PM EDT Anna Giles ANP POINT OF CARE TEST ENTER/EDIT OR DERABLES Final Result documented in this encounter Visit Diagnoses Diagnosis Sore throat- Primary Acute pharyngitis Laryngitis Acute laryngitis, without mention of obstruction Acute nonintractable headache, unspecified headache type documented in this encounter Additional Health Concerns Assessment Noted Time PHQ-9 Depression Total Score: 3 09/15/19 25 11:33 AM EDT documented as of this encounter Care Teams Eyelet Riveter Relationship Specialty Start Date End Date Ashley Quan NP [address] [place] [id number] PCP - General Family Medicine 10/20/23 Elicia Benitez Superintendent Mechanical 11/25/23 documented as of this encounter
--- OUTSIDE RECORDS SUMMARY | 2024-11-18 19:33 | XMS_ITS | Clinical Summary ---
Author Organization [employer] Address [address] [place] [address] 7[address] [place] [address] Care Team Providers Care Coiled Tubing Supervisor Name Role Phone Kadeem Ashley LINDER Primary Care Provider [phone] Allergies No known active allergies Medications Ferrocite 324 MG tablet Take 1 tablet by mouth Once per day. 024 Active cholecalciferol (Vitamin D-3) 50 MCG (2000 UT) capsule Take 1 capsule (50 mcg) by mouth Once per day. 90 capsule 3 025 2025 Active Vit-Fe Fumarate-FA ( Vitamins) 28-0.8 MG tablet TAKE 1 TABLET BY MOUTH EVERY DAY 90 tablet 3 025 Active fluticasone (Flonase) 50 MCG/ACT nasal spray Administer 1 spray into each nostril Once per day. 16 g 025 Active ibuprofen 600 MG tabletIndications :Sore throat Take 1 tablet every 8 hours as needed for sore throat for up to 5 days, then take as needed for headache, body aches 120 tablet 025 Active acetaminophen (Tylenol) 325 MG tabletIndications :Sore throat Take 2 tablets (650 mg) by mouth every 6 (six) hours if needed for mild pain. 60 tablet 1 025 Active acetaminophen (Tylenol) 325 MG tablet Take 2 tablets (650 mg) by mouth every 6 (six) hours if needed for mild pain. 60 tablet 1 025 2024 Discontinued(R eorder (will not trigger notification to Pharmacy)) ibuprofen 600 MG tabletIndications :Acute nonintractable headache, unspecified headache type TAKE 1 TABLET BY MOUTH EVERY 6 HOURS IF NEEDED FOR MILD PAIN OR HEADACHES. 120 tablet 025 2024 Discontinued(R eorder (will not trigger notification to Pharmacy)) Active Problems Patient Care Coordination No te Formatting of this note migh t be different from the original. C3/CM Marce Long RN Problem Noted Date Diagnosed Date Class 2 obesity 09/13/2024 Severe obesity (CMS/HCC) 09/13/2024 Acute non-recurrent frontal sinusitis 09/05/2024 Assessment & Plan (09/05/2024 9:29 AM EDT): Most likely viral, she is fever free at this time. Rest (sleep at least 8 hours a night). Hydrate with plenty of water (avoid caffeine and alcohol). Use saline nose drops + Flonase take Acetaminophen (Tylenol )/Ibuprofen as needed to reduce fever, headache, body [...] 72 hours (temperature should be less than 100 F without medication). Anemia 12/18/2023 H/O emergency section 12/18/2023 Non-Maltese speaking patient 07/24/2022 History of deep vein thrombosis during 07/12/2022 Elevated blood pressure reading 07/12/2022 07/12/2022 Resolved Problems Problem Noted Date Diagnosed Date Resolved Date Assistance with transportation 12/18/2023 07/21/2024 Thrombus 12/18/2023 07/21/2024 DVT complicating , third trimester 02/20/2023 07/21/2024 Anemia in 07/24/2022 07/22/19 25 Obesity in 07/24/2022 025 Headache in 07/24/20222024 Nausea and vomiting in 07/24/2022 07/21/2024 07/24/2022 07/21/2024 Social problem 07/24/2022 07/21/2024 Pulmonary edema 07/12/2022 07/21/2024 Encounters Date Type Department Care Team Description 11/18/2024 1:40 PM EDT Office Visit [facility] [address] [place] [id number] Anna Giles ANP Sore throat (Primary Dx); Laryngitis; Acute nonintractable headache, unspecified headache type 11/18/2024 Travel 11/16/2024 Patient Outreach [facility] [address] [place] [address] Ashley Quan NP Pre-visit Planning (SDOH unable to reach [facility] ) 10/28/[address] [address] Ashley Quan NP 10/14/2024 10:15 AM EDT Office Visit [address] [address] Ashley Quan NP Acute intractable headache, unspecified headache type (Primary Dx); General counseling and advice on female contraception 10/14/2024 Travel 10/13/[address] [address] Alejandro Hooks MA chart prep 10/11/[address] [address] Ashley Quan NP Acute nonintractable headache, unspecified headache type 09/29/2024 Patient Outreach [address] [address] Ashley Quan NP Care Coordination (C3CM/CHW [place], [facility] sent([employer])) 09/14/2024 10:00 AM EDT Office Visit [address] [address] Ashley Quan NP Encounter to establish care with new provider (Primary Dx); Cerumen in auditory canal on examination; Acute nonintractable headache, unspecified headache type; Dizziness; Prediabetes; Stretch vazquez; Family planning 09/14/2024 Travel 09/13/[address] [address] Ines Gaffney [place] CHARTPREP 09/07/2024 Patient Outreach [facility] [address] [place] [address] Ashley Quan NP Pre-visit Planning (SDOH unable to reach [facility] ) 09/05/2024 9:20 AM EDT Office Visit [facility] [address] [place] [address] Meagan Ferguson MD Acute non-recurrent frontal sinusitis (Primary Dx); Dietary counseling; Exercise counseling; Class 3 severe obesity due to excess calories without serious comorbidity with body mass index (BMI) of 40.0 to 44.9 in adult 09/05/2024 Travel from Last 3 Months Immunizations Immunization Administration Dates Next Due Influenza, seasonal, injectable, preservative fr ee 01/26/2024 RSV Bivalent 02/24/2024 Tdap 01/26/2024,05/12/2022 Social History Tobacco Use Types Packs/Day Years [...] Q2 Not on file 11/24/2023 Comments No Intention Date Recorded No desire to become (finding) 0 09/05/2024 Sex and Gender Information Value Date Recorded Sex Assigned at Female 01/15/2022 2:46 PM EST Legal Sex Female 2:46 PM EST Gender Identity Female 01/15/2022 2:46 PM EST Sexual Orientation Straight 01/15/2022 2: 46 PM EST Last Filed Vital Signs Vital Sign Reading Time Taken Comments Blood Pressure 106/63 11/18/2024 1:47 PM EDT Pulse 85 11/18/2024 1:47 PM EDT Temperature 36.8 C (98.2 F) 11/18/2024 1:47 PM EDT Respiratory Rate 18 11/18/2024 1:47 PM EDT Oxygen Saturation 99% 11/18/2024 1:47 PM EDT Inhaled Oxygen Concentration - - Weight 105 kg (232 lb) 11/18/2024 1:47 PM EDT Height 160 cm (5' 3 ) 10/14/2024 10:26 AM EDT Body Mass Index 41.1 10/14/2024 10:26 AM EDT Plan of Treatment Upcoming Encounters Date Type Department Care Team (Late st Contact Info) Description 11/23/2024 3:15 PM EDT Office Visit [facility] [address] [place] [address] Ashley Quan NP [address] [place] [address] 01/05/2025 3:15 PM EST Office Visit [facility] [address] [place] [address] Maria Del Rosario Delgadillo, OD [address] [place] [address] 03/29/2025 10:00 AM EST Office Visit [facility] ADULT DENTAL [address] [facility] [place] [address] Jose Hernandezaris [address] [place] [address] Health Maintenance Due Date Last Done Comments HIV Screening 1996 HPV Vaccines (1 - 3-dose series) 05/28/2011 Hepatitis C Screening 2014 Hepatitis B Vaccines (1 of 3 - 19+ 3-dose series) 05/28/2015 COVID-19 Vaccine (2023-2 5 season) 2024 Influenza Vaccine (#1) 2024 01/26/2024 Pap Smear 01/27/2025 01/27/2022 Diabetes: Hemoglobin A1C 09/05/2025 025, 07/21/2024 Family Planning (PISQ) 09/05/2025 09/05/2024 Alcohol/Substance Use Screening 09/14/2025 09/14/2024 Depression Screening 09/14/2025 09/14/2024, 09/14/2024 Disability Screening 09/14/2025 09/14/2024 SDOH Screening 09/14/2025 09/14/2024 Tobacco Screening 11/18/2025 11/18/2024 Lipid Panel 07/21/2029 07/21/2024 DTaP/Tdap/Td Vaccines (3 - T d or Tdap) 01/25/2034 01/26/2024, 05/12/2022 Zoster Vaccines (1 of 2) 2046 RSV Patients and Patients Aged 60 years or older Completed 02/24/2024 HIB Vaccines Aged Out No longer eligi ble based on patient's age to complete this topic Hepatitis A Vaccines Aged Out No long er eligible based on patient's age to complete this topic IPV Vaccines Aged Out No longer eligi ble based on patient's age to complete this topic Meningococcal B Vaccine Aged Out No l onger eligible based on patient's age to complete this topic Meningococcal Vaccine Aged Out No mercedez chace eligible based on patient's age to complete this topic Pneumococcal Vaccine: Pediatrics (0 to 5 Years) and At-Risk Patients (6 to 49) Years Aged Out No longer eligible b ased on patient's age to complete this topic RSV under 20 months Aged Out No longe r eligible based on patient's age to complete this topic Rotavirus Vaccines Aged Out No longer eligible based on patient's age to complete this topic Procedures Procedure Name Priority Date/Time Associated Diagnosis Comments POCT INFLUENZA B (ID NOW RAPID MOLECULAR) Routine 11/18/2024 2:09 PM EDT Sore throat POCT INFLUENZA A (ID NOW RAPID MOLECULAR) Routine 11/18/2024 2:09 PM EDT Sore throat POCT RAPID COVID ANTIGEN Routine 11/18/2024 1:54 PM EDT Sore throat POCT RAPID STREP A Routine 11/18/2024 1: 53 PM EDT Sore throat TSH W/REFLEX TO FT4 Routine 09/05/2024 9 :35 AM EDT Class 3 severe obesity due to excess calories without serious comorbidity with body mass index (BMI) of 40.0 to 44.9 in adult HEMOGLOBIN A1C Routine 09/05/2024 9:35 AM EDT Class 3 severe obesity due to excess calories without serious comorbidity with body mass index (BMI) of 40.0 to 44.9 in adult BASIC METABOLIC PANEL Routine 09/05/2024 9:35 AM EDT Class 3 severe obesity due to excess calories without serious comorbidity with body mass index (BMI) of 40.0 to 44.9 in adult LIPID PANEL, STANDARD Routine 07/21/2024 10:21 AM EDT Chronic nonintractable headache, unspecified headache type Anemia, unspecified type HM PAP/HPV Routine 01/27/2022 from Last 3 Months or Most Recently Relevant to Health Maintenance Results * Influenza B (ID NOW Rapid Molecular) (11/18/2024 2:09 PM EDT) [facility] Influenza B Negative Negative, Indeterminate [facility] Swab 11/18/2024 2:09 PM EDT Anna Giles ANP POINT OF CARE TEST ENTER/EDIT OR DERABLES Final Result Performing Organization Address [facility]/ZIP Co de Phone Number [facility] [address] [place] [phone] * Influenza A (ID NOW Rapid Molecular) (11/18/2024 2:09 PM EDT) [facility] Influenza A Negative Negative, Indeterminate [facility] Swab 11/18/2024 2:09 PM EDT Anna Giles ANP POINT OF CARE TEST ENTER/EDIT OR DERABLES Final Result Performing Organization Address [facility] Co de Phone Number [facility] [address] [place] [phone] * POCT Rapid COVID Ag (11/18/2024 1:54 PM EDT) [facility] Rapid COVID Ag Negative Swab 11/18/2024 1:54 PM EDT Anna Giles ANP POINT OF CARE TEST ENTER/EDIT OR DERABLES Final Result * POCT rapid strep A manually resulted (11/18/2024 1:53 PM EDT) [facility] Rapid Strep A Screen Negative Negative, None Detected Swab 11/18/2024 1:53 PM EDT Anna Giles ANP POINT OF CARE TEST ENTER/EDIT OR DERABLES Final Result * TSH with Reflex to Free T4 (09/05/2024 9:35 AM EDT) TSH reflex Free T4 2.20 0.32 - 4.0 uIU/mL [facility] Blood 09/05/2024 9:35 AM EDT 09/05/2024 11:10 AM EDT Meagan Ferguson MD LAB BLOOD ORDERABLES Fin al Result Performing Organization Address [facility] Co de Phone Number [facility] [address] [place] [address] [phone] * Hemoglobin A1c (09/05/2024 9:35 AM EDT) Hemoglobin A1c 5.7 <6.0 % [facility] Comment:Hemoglobin A1C Refer ence Range Adults: 4.8 - 6.0 % Non diabetic: < 6.0 % Goal: < 7.0 %Additional Action Suggested: > 8.0 %Note: Hemoglobin A1c results are invalid for patients with abnormal amounts of HbF. Blood transfusions may impact the HbA1c concentration in the patient sample. Estimated Average Glucose 117 mg/dL [facility] Comment:eAG = Estimated ave rage glucose which is %A1C expressed asaverage glucose, using the formula of the [id number] Glucose study (ADAG), Diabetes Care, Vol.31,#8,Sep. 2007 Blood Venous blood specimen / Unknown 09/05/2024 9:35 AM EDT 09/05/2024 11:10 AM EDT us Meagan Ferguson MD LAB BLOOD ORDERABLES Fin al Result Performing Organization Address [facility]/ZIP Co de Phone Number [facility] [address] [place] [address] [phone] * (ABNORMAL) Basic Metabolic Panel (09/05/2024 9:35 AM EDT) Sodium 141 135 - 145 mmol/L [facility] Potassium 4.3 3.3 - 5.1 mmol/L [facility] Chloride 109(H) 96 - 108 mmol/L [facility] Carbon Dioxide 25 22 - 29 mmol/L [facility] Anion Gap 11(L) 12 - 20 [facility] Urea Nitrogen (BUN) 10 9 - 16 mg/dL [facility] Creatinine, Serum 0.67 0.5 - 1.4 mg/dL [facility] Estimated Glomerular Filt Rate >60 [facility] Comment:Chronic Kidney Disea se: Estimated GFR < 60 mL/min/[id number] Kidney Disease: Estimated GFR < 15 mL/min/1.73m2 Glucose 98 60 - 115 mg/dL [facility] Calcium 9.1 8.4 - 10.2 mg/dL [facility] Blood Venous blood specimen / Unknown 09/05/2024 9:35 AM EDT 09/05/2024 11:10 AM EDT us Meagan Ferguson MD LAB BLOOD ORDERABLES Fin al Result [facility] [address] [place] [phone] * (ABNORMAL) Lipid Panel, Standard (07/21/2024 10:21 AM EDT) Triglycerides 60 <150 mg/dL [facility] Comment:Desirable Triglyceri de: less than 150 mg/dLBorderline High Triglyceride 150-199 mg/dLHigh Triglyceride: 200-499 mg/dLVery High Triglyceride: greater than or equal to 5OO mg/dL Cholesterol 160 <200 mg/dL [facility] Comment:Desirable Cholestero l: less than 200 mg/dLBorderline High Cholesterol: 200-239 mg/dLHigh Cholesterol: greater than 239 mg/dL LDL Cholesterol Calculated 102(H) <100 mg/dL [facility] Comment:Desirable LDL: less than 100 mg/dLNear Optimal/Above Optimal LDL: 110- 129 mg/dLBorderline High LDL: 130-159 mg/dLHigh LDL: 160-189 mg/dLVery High LDL: greater than or equal to 190 mg/dL HDL Cholesterol 46 >40 mg/dL [facility] Comment:Desirable HDL: great er than 40 mg/dL Note: This HDL assay may give artificially low results in patients with liver disease. Blood Venous blood specimen / Unknown 07/21/2024 10:21 AM EDT 07/21/2024 11:37 AM EDT Bibiana Guzman DO LAB BLOOD ORDERABLES Final R esult [facility] [address] [place] [phone] [phone] * Pap Smear (01/27/2022) Pap Negative for intraephithelial lesion or malignancy Negative for intraephithelial lesion or malignancy, Other HPV Undetected Undetected, Indeterminate, Quantitative, Not Detected Historical Provider HEALTH MAINTENANCE Final Result from Last 3 Months or Most Recently Relevant to Health Maintenance Insurance [facility] C3 DENTAL-[facility] MEDICAID STAND ADULT Care Teams Coiled Tubing Supervisor Relationship Specialty Start Date End Date Ashley Quan NP [address] [facility] [place] [address] PCP - General Family Medicine 10/20/23 Elicia Benitez Medical Voucher Clerk 11/25/23
--- OUTSIDE RECORDS SUMMARY | 2024-11-18 19:33 | XMS_ITS | Encounter Summary ---
Author Organization [employer] Address [address] [facility] [address] [place] [address] Care Team Providers Care Retail Account Manager Name Role Phone Ashley Quan NP Primary Care Provider [phone] Reason for Visit * Reason Comments Pre-visit Planning SDOH unable to reach LVM Encounter Details Date Type Department Care Team ([facility] st Contact Info) Description 11/16/2024 Patient Outreach [facility] [address] [place] [address] Ashley Quan NP [address] [place] [address] Pre-visit Planning (SDOH unable to reach LVM ) Social History Tobacco Use Types Packs/Day Years [...] PM EST documented as of this encounter Progress Notes * Alison Bonds - 11/16/2024 11:21 AM EDT PONCHO Underwood placed outbound call to patient to complete pre-visit planning. No answer at this time. Patient name and were not confirmed. CC left voicemail requesting return call. Direct contactinformation provided. documented in this encounter Plan of Treatment Upcoming Encounters Date Type Department Care Team ([facility] st Contact Info) Description 11/23/2024 3:15 PM EDT Office Visit [facility] [address] [place] [address] Ashley Quna NP [address] [place] [address] 01/05/2025 3:15 PM EST Office Visit [facility] [address] [place] [address] Maria Del Rosario Delgadillo, OD [address] [place] [address] 03/29/2025 10:00 AM EST Office Visit [facility] AD[facility] [address] [place] [address] Lyssa Hernandez [address] [place] [address] documented as of this encounter Visit Diagnoses Not on filedocumented in this encounter Additional Health Concerns Assessment Noted Time PHQ-9 Depression Total Score: 3 09/15/19 25 11:33 AM EDT documented as of this encounter Care Teams Retail Account Manager Relationship Specialty Start Date End Date Ashley Quan NP [address] [place] [address] PCP - General Family Medicine 10/20/23 Elicia Benitez Lathe Scalper Operator 11/25/23 documented as of this encounter
--- OUTSIDE RECORDS SUMMARY | 2024-11-18 19:33 | XMS_ITS | Encounter Summary ---
Author Organization [employer] Address [address] [facility] [address]t [place] [address] Care Team Providers Care Dental Resident Name Role Phone Ashley Quan KAILASH Primary Care Provider [phone] Encounter Details Date Type Department Care Team (Latest Contact Info) Description 11/18/2024 Travel Social History Tobacco Use Types Packs/Day Years [...] Description 11/23/2024 3:15 PM EDT Office Visit [facility] [address] [place] [address] Ashley Quan NP [address] [place] [address] 01/05/2025 3:15 PM EST Office Visit [facility] OPTOMETRY [address] [place] [address] TarMaria Del Rosario martinez, OD [address] [place] [address] 03/29/2025 10:00 AM EST Office Visit [facility] ADULT DENTAL [address] [place] [address] David, Lyssa [address] [place] [address] documented as of this encounter Visit Diagnoses Not on filedocumented in this encounter Additional Health Concerns Assessment Noted Time PHQ-9 Depression Total Score: 3 09/15/19 25 11:33 AM EDT documented as of this encounter Care Teams Dental Resident Relationship Specialty Start Date End Date Ashley Quan NP [address] [place] [address] PCP - General Family Medicine 10/20/23 Elicia Benitez Research Technician 11/25/23 documented as of this encounter
== END 2024-11-18 19:32 | disposition home or self-care (01) ==
LOC: HO.HHCLNP 19:31
PROVIDERS: Visit Provider Nurse Practitioner Primary Care
DX: J02.9 Acute pharyngitis, unspecified (principal)
CPT/HCPCS: 87070

== ENCOUNTER 2025-01-04 16:08 | Outpatient (REF) | payer MEDICAID, SELFPAY ==
--- NOTE | ~2025-01-04 | CT_ITS ---
EXAMINATION: CT HEAD WITHOUT CONTRAST CLINICAL INFORMATION: persistent headaches associated with dizziness and visual disturbances COMPARISON: None available. TECHNIQUE: Contiguous axial imaging was performed from the skull base to vertex without intravenous administration of contrast. This CT examination was performed using dose optimization techniques as appropriate, variously including the following: *Automated exposure control *Adjustment of mA and/or kV according to patient size (this includes techniques or standardized protocols for targeted exams where dose is matched to indication/reason for exam; i.e. extremities or head) *Use of iterative reconstruction technique DLP: 874 mGy-cm FINDINGS: No acute intracranial hemorrhage, mass effect, midline shift, hydrocephalus or herniation. Watkins-white matter differentiation is normal. There is a questionable 2 mm hypodensity in the genu corpus callosum. Posterior cranial fossa contents demonstrated no gross acute hemorrhage or mass effect. Normal position of the cerebellar tonsils. 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 Bony calvarium is intact. No air-fluid levels in the paranasal sinuses. Tympanic cavities and mastoid cells are aerated. Pneumatized petrous apices, congenital. CT/CT head/brain wo IV con IMPRESSION: No acute intracranial hemorrhage. Questionable 2 mm hypodensity versus artifact, genu corpus callosum Electronically signed by: Moose Morris MD 01/05/2025 06:50 AM EST
== END 2025-01-04 16:09 | disposition home or self-care (01) ==
LOC: HO.CT 16:08
PROVIDERS: PCP Internal Medicine; Visit Provider Nurse Practitioner
DX: R51.9 Headache, unspecified (principal)
CPT/HCPCS: 70450

== ENCOUNTER → 2025-01-04 16:12 | Outpatient (BNV) | payer MEDICAID, SELFPAY | PROVIDERS: PCP Internal Medicine; Visit Provider Radiology Diagnostic Radiology | DX: R51.9 Headache, unspecified (principal); R42 Dizziness and giddiness; H53.9 Unspecified visual disturbance | CPT/HCPCS: 70450 ==